=== PATIENT | female | born 1940 | race Caucasian/White ===

== ENCOUNTER → 2017-02-06 09:15 | Outpatient (CLI) | payer MEDICARE, OTHER, SELFPAY ==
--- NOTE | 2017-02-06 09:24 | XR_ITS ---
XR chest 2V CLINICAL INDICATION: ITS.REASON: RECURRENT COUGH, FEVER ORDERING PHYSICIAN: Bello Lion PATIENT AGE: 76 years COMPARISON: 10/26/2010 FINDINGS: Unremarkable cardiovascular structures. The lungs are clear of acute infiltrate. Nodularity is present in the left perihilar region and may be related to overlapping vasculature having a similar appearance on the previous exam. There is some nodularity noted in the infrahilar region on the lateral view. There are no previous lateral exams available for comparison. While this may be related to overlying vasculature, one cannot exclude possibility of a pulmonary nodule. Follow-up is suggested. Minimal atelectatic changes are present in the lung bases. There is mild wedging of T9 and to a lesser degree at T11 of unknown age. IMPRESSION: 1. Nodular opacity noted in the infrahilar region. Cannot exclude pulmonary nodule. Consider chest CT follow-up with contrast. 2. Minimal wedging of T9 and T11 age-indeterminate. 3. No acute infiltrate
== END ==
PROVIDERS: PCP Internal Medicine; Visit Provider Internal Medicine
DX: R05 Cough (principal); R50.9 Fever, unspecified
CPT/HCPCS: 71046

== ENCOUNTER → 2017-02-13 14:06 | Outpatient (CLI) | payer MEDICARE, OTHER, SELFPAY ==
[2017-02-13 15:25] LABS: Blood Urea Nitrogen 19 mg/dL (7-18); Creatinine,Serum 0.93 mg/dL (0.55-1.02); Estimated Glomerular Filt Rate 59 ml/min (>60); GFR (African American) 71 ML/MIN (>60)
== END ==
PROVIDERS: PCP Internal Medicine; Visit Provider Internal Medicine
DX: R91.1 Solitary pulmonary nodule (principal)
CPT/HCPCS: 36415; 82565; 84520

== ENCOUNTER → 2017-02-15 13:32 | Outpatient (CLI) | payer MEDICARE, OTHER, SELFPAY ==
--- NOTE | 2017-02-15 13:36 | CT_ITS ---
CT chest w con HISTORY: Solitary pulmonary nodule, follow-up abnormal chest x-ray, recurrent cough and fever ITS.REASON: LUNG NODULE ORDERING PHYSICIAN: Bello Lion PATIENT AGE: 76 years TECHNIQUE: Helical acquisition obtained following the administration of 75 mL of Isovue 370 followed. Axial, sagittal, and coronal reformatted images are generated and reviewed. COMPARISON: Radiograph of 02/06/2017 FINDINGS: No mediastinal or hilar mass. Normal heart size. No pericardial thickening. No mediastinal or hilar adenopathy. Small hiatal hernia. No pulmonary mass, infiltrate, or effusion. Radiographic abnormality corresponds to overlapping pulmonary vessels and a somewhat unusual contour of the branching of the pulmonary artery in the right middle lobe. Upper abdominal images show a 15 mm adrenal nodule in the left. This has a homogeneous appearance but is somewhat hyperdense. 6 month follow-up recommended to confirm stability. There is mild wedging involving T9 which appears chronic. No acute bony anomalies are evident. IMPRESSION: 1. No pulmonary nodule or hilar mass evident. Radiographic abnormality corresponds to overlapping vessels 2. 15 mm left adrenal nodule nonspecific. Consider 6 month follow-up without and with contrast.
--- NOTE | 2017-02-15 13:58 | HMH.ITSHM ---
NAPROXEN 500MG PREDNISONE 4MG FIBER THERAPY CALCIUM AND VIT D LOSARTEN ASPIRIN 88MG
== END ==
PROVIDERS: Family Provider Internal Medicine; PCP Internal Medicine; Visit Provider Internal Medicine
DX: R91.1 Solitary pulmonary nodule (principal)
CPT/HCPCS: 71260; Q9967

== ENCOUNTER → 2017-02-27 16:12 | Outpatient (CLI) | payer MEDICARE, OTHER, SELFPAY ==
--- NOTE | 2017-02-27 16:18 | MM_ITS ---
MM Dig screening mamm BI w/CAD Diagnostic bilateral mammogram with CAD ORDERING PHYSICIAN : Bello Lion PATIENT AGE: 76 years GENDER: Female COMPARISON: Previous mammograms: January 2013, 2013 2014 and February 2016 INDICATION: TECHNIQUE: Standard CC and MLO images were obtained. R2 CAD reviewed. FINDINGS no significant changes prior study. Moderate breast density. Stable areas of density bilaterally. Benign calcification bilateral. Right breast : The up to 11 mm low-density ovoid area at the superior right breast 12 o'clock position . is stable since prior studies dating back to at least 2012 Previous percutaneous biopsy with metallic marker upper-outer quadrant deep right breast. Left breast.: The 7.8 mm stable density at the central left breast is unchanged study since 2012 as well. It is stable benign features with no significant new findings. IMPRESSION: 1. Stable bilateral mammogram with no significant new findings. Stable minimal nodularity bilaterally.Low-density breast. Follow-up in one year BI-RADS Category: 2 Benign Finding(s) RECOMMENDED FOLLOW-UP: 1YR - 1 YEAR FOLLOW-UP (A letter has been sent to the patient regarding results of the study.)
== END ==
PROVIDERS: Family Provider Internal Medicine; PCP Internal Medicine; Visit Provider Internal Medicine
DX: Z12.31 Encounter for screening mammogram for malignant neoplasm of breast (principal)
CPT/HCPCS: 77067

== ENCOUNTER → 2017-12-25 09:30 | Outpatient (CLI) | payer MEDICARE, OTHER, SELFPAY ==
--- NOTE | 2017-12-25 10:02 | CT_ITS ---
CT abdomen wo/w con CLINICAL INDICATION: Follow-up adrenal nodule ITS.REASON: 6 MONTH F/U LEFT AREA ORDERING PHYSICIAN: Bello Lion PATIENT AGE: 77 years COMPARISON: None TECHNIQUE: Axial images obtained without and with contrast. Sagittal and coronal reformats. All CT scans at the facility use one or more dose reduction, viz: automated exposure control, ma/kV adjustment per patient size (including targeted exams where dose is matched to indication, i.e. head), or iterative reconstruction technique. PROCEDURE: Oral Contrast: None IV Contrast: 75 mL Isovue-370. FINDINGS: The lung bases are clear. Prior cholecystectomy.. The spleen, right adrenal gland, pancreas, and kidneys have an unremarkable appearance aside from a small isodensity in the lower pole of the right kidney at 5 mm which may be due to small renal cyst. Left adrenal enlargement is once again noted measuring 15 mm. Unenhanced density is -10 Hounsfield units with 15 minute postenhancement density at -1 Hounsfield units. This is consistent with an adenoma. Immediate post enhanced density is 32 Hounsfield units. No other abnormalities apparent. IMPRESSION: Stable left adrenal nodule consistent with an adenoma
== END ==
PROVIDERS: PCP Internal Medicine; Visit Provider Internal Medicine
DX: D35.00 Benign neoplasm of unspecified adrenal gland (principal)
CPT/HCPCS: 74170; Q9967

== ENCOUNTER 2018-04-13 06:50 | Inpatient (IN) ==
[2018-04-13 07:29] LABS: Basophils # 0.1 K/mm3 (0-0.2); Basophils % 0.3 % (0.1-2.0); Eosinophils # 0.2 K/mm3 (0.0-0.4); Eosinophils % 1.4 % (0.1-12.0); Hematocrit 40.6 % (37.0-47.0); Hemoglobin 13.4 g/dL (12.2-16.2); Lymphocytes # 1.7 K/mm3 (0.7-4.5); Lymphocytes % 12.9 % (10-50); Mean Corpuscular HGB Conc 32.9 g/dL (31.8-35.4); Mean Corpuscular Hemoglobin 29.2 pg (27.0-31.2); Mean Corpuscular Volume 88.6 fl (81-99); Mean Platelet Volume 7.9 fl (7.4-10.4); Monocytes # 0.4 K/mm3 (0.1-1.0); Monocytes % 2.8 % (1.7-9.3); Neutrophils # 11.1 K/mm3 (1.8-7.8); Neutrophils % 82.6 % (37.0-80.0); Platelet Count 221 K/mm3 (142-424); Red Blood Count 4.58 M/mm3 (4.20-5.40); Red Cell Distribution Width 13.1 % (11.5-17.5); White Blood Count 13.4 K/mm3 (4.8-10.8)
[2018-04-13 07:34] LABS: Albumin Level 3.5 gm/dL (3.4-5.0); Anion Gap 13.9 mEq/L (5-15); Calcium 8.9 mg/dL (8.5-10.1); Globulin 3.6 gm/dl (1.3-3.2); Potassium 3.9 mmoL/L (3.5-5.1); Total Protein,Serum 7.1 gm/dL (6.4-8.2)
--- NOTE | 2018-04-13 07:44 | Emergency Department Note ---
ED Disposition Condition on Discharge: Good - Critical Care Critical Care Time: No <Charly Wick - Last Filed: 04/13/18 08:05> Condition on Discharge: Fair - Critical Care Critical Care Time: No <RadhaRabia burden - Last Filed: 04/13/18 08:44> Clinical Impression: Acute diverticulitis, Diverticular disease Abdominal pain Qualifiers: Abdominal location: left lower quadrant Qualified Code(s): R10.32 - Left lower quadrant pain Disposition: Still a Patient Referrals: Bello Lion [Primary Care Provider] - Attestation: On 04/13/18, the high probability of a clinically significant, sudden or life threatening deterioration of the following system(s) required my full and direct attention, intervention and personal management. The time I documented below is in addition to time spent performing reported procedures but includes the fo llowing listed in this critical care notation. Medical Decision Making - Alex Inquiry Pt receiving controlled substance: No - Lab Data Result diagrams: 04/13/18 07:10 04/13/18 07:10 <KennedyvickyCharly - Last Filed: 04/13/18 08:05> - Alex Inquiry Pt receiving controlled substance: No Alex was queried for this patient: No - Lab Data Result diagrams: 04/13/18 07:10 04/13/18 07:10 <RadhajeniseRabia - Last Filed: 04/13/18 08:44> Vital Signs: 04/13/18 06:56 04/13/18 07:41 04/13/18 08:29 Temperature 97.9 F Temperature Source Oral Pulse Rate [Left] 74 71 87 Respiratory Rate 18 16 20 Blood Pressure [Left Arm] 126/67 118/64 137/58 L Blood Pressure Mean [Left Arm] 86 82 84 Blood Pressure Source [Left Arm] Automatic Cuff Automatic Cuff Automatic Cuff Blood Pressure Position [Left Arm] Sitting Sitting Sitting 02 Sat by Pulse Oximetry 97 94 L 94 L Oxygen Delivery Method Room Air Room Air Room Air - Lab Data Lab Results 04/13/18 07:10: WBC 13.4 H, RBC 4.58, Hgb 13.4, Hct 40.6, MCV 88.6, MCH 29.2, MCHC 32.9, RDW 13.1, Plt Count 221, MPV 7.9, Neut % (Auto) 82.6 H, Lymph % (Auto) 12.9, [place] % (Auto) 2.8, Eos % (Auto) 1.4, Baso % (Auto) 0.3, Neut # (Auto) 11.1 H, Lymph # (Auto) 1.7, [place] # (Auto) 0.4, Eos # (Auto) 0.2, Baso # (Auto) 0.1 04/13/18 07:10: Sodium 142, Potassium 3.9, Chloride 105, Carbon Dioxide 27, Anion Gap 13.9, BUN 21 H, Creatinine 0.84, Estimated Creat Clear 56, Estimated GFR 66, Est GFR ( Amer) 80, Glucose 139 H, Calcium 8.9, Total Bilirubin 1.0, AST 13 L, ALT 23, Alkaline Phosphatase 75, Total Protein 7.1, Albumin 3.5, Globulin 3.6 H, Albumin/Globulin Ratio 1.0 L, Amylase 39, Lipase 157 Orders (Tests/Meds): ED MEDICATIONS Generic Name Dose Route Start Last Admin Trade Name Fernandoq PRN Reason Stop Dose Admin Metronidazole 500 mg in 100 mls @ 100 mls/hr 04/13/18 08:45 04/13/18 08:36 Flagyl 500mg/100ml Ivpb IV 04/27/18 08:44 100 mls/hr Q6H ADELE Administration Protocol Levofloxacin/Dextrose 750 mg in 150 mls @ 100 mls/hr 04/13/18 08:45 Levofloxacin 750mg/150ml Premix IV 04/27/18 08:44 Q24H ADELE Protocol Discontinued Medications Generic Name Dose Route Start Last Admin Trade Name Freq PRN Reason Stop Dose Admin Sodium Chloride 1,000 mls @ 999 mls/hr 04/13/18 07:15 04/13/18 07:24 Sod Chlor 0.9% 1000ml Bag IV 04/13/18 08:15 999 mls/hr .Q1H1M ADELE Administration Ketorolac Tromethamine 30 mg 04/13/18 07:08 04/13/18 07:24 Toradol 30mg/Ml Vial IV 04/13/18 07:09 30 mg ONCE ONE Administration Ondansetron HCl 4 mg 04/13/18 07:08 04/13/18 07:24 Zofran 4mg/2ml Vial IV 04/13/18 07:09 4 mg ONCE ONE Administration ORDERS Category Date Time Status CT abdomen pelvis wo con Stat Cat Scan 04/13/18 07:06 Taken Urinalysis and Microscopic Stat Lab 04/13/18 07:06 Ordered Medical Decision Narrative: 8:00 AM: At shift change, I have discussed the patient with Dr. Bain, who will assume care of the patient at this time. I have discussed all clinical information including history, physical and diagnostic study results. Preliminary diagnoses based on information available at this point have been recorded by me. Controlled substance administration and critical care statement are also preliminary, as of the time of handoff. (Charly Wick) [address] Bain: S: 74 years old white female with history of hypertension and status post cholecystectomy many years ago and [facility]. 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 She is not aware of history of diverticulosis. Today at 4 AM she developed sudden onset sharp left lower quadrant pain worse with movement and ambulation. She became nauseous with no vomiting no diarrhea no hematemesis no coffee-ground emesis no melanotic stool or bleeding per rectum. She presented to the ED with the pain rated 10/10 and she was given Toradol that reduce her pain to 2/10. I reviewed the above documentation and received the CT scan that was positive for inflammatory changes and microperforation. I contacted the on-call [facility] surgeon Dr. Emerson, who advised for bowel rest, IV antibiotics and he will see her within an hour. The patient was satisfied with the management plan. I contacted Dr. Lloyd who admitted her on behalf of Dr. Agudelo. O: Vital signs are stable. Chest is clear to auscultation heart is regular rate and rhythm. Abdomen is soft with left lower quadrant tenderness and voluntary guarding positive bowel sounds. Strong equal bilateral femoral pulse. A/P: 1-acute diverticulitis with microperforations. 2-history of hypertension. 3-S/P cholecystectomy. I discussed the above with the patient and her son, they are aware she is being admitted for medical management and possibly surgical intervention if no improvement,they verbalized understanding of the management plan. (Rabia Bain) General Adult HPI - General Mode of Arrival: Ambulatory Limitations: No Limitations Description of Symptoms (Recalled from ER Triage Doc. by RN): Pt states she woke up with a LLQ abd pain. <Charly Wick - Last Filed: 04/13/18 08:05> <Rabia Bain - Last Filed: 04/13/18 08:44> - General Chief complaint: Abdominal Pain Stated complaint: Left side pain Time Seen by Provider: 04/13/18 07:44 - History of Present Illness HPI narrative: Awakened at 4 AM by left lower quadrant pain. Vomiting, but no diarrhea or constipation or urinary symptoms. No fever. No prior similar pains. Prior history of cholecystectomy, no other abdominal surgeries. Pain is now 2/10. Was 5/10 on arrival. (Charly Wick) - Related Data Allergies Allergy/AdvReac Type Severity Reaction Status Date / Time codeine [CODEINE] AdvReac Mild NA-NAUSEA Verified 04/13/18 08:36 BANDAIDS Allergy Unknown Uncoded 01/23/17 14:26 [facility] History - Hepatitis A Screen Drug use history?: No High risk sexual behaviors?: No History of sexually transmitted infection?: No Currently employed?: No Childcare worker?: No Do you have indoor plumbing?: Yes Do you have electricity?: Yes I have reviewed the patient's past medical history: Yes - Social History Alcohol Intake: never Occupational Status: retired - Psychiatric History Expresses thoughts of harming self/others: None Suicide Plan Description: No Plan <Charly Wick - Last Filed: 04/13/18 08:05> - Hepatitis A Screen Attestation statement:: This patient has been screened for Hepatitis A risk factors. ROS Obtained: Yes All systems reviewed & no additional complaints - Constitutional Constitutional: Denies fever(s) - Gastrointestinal Gastrointestingal: Reports: abdominal pain, vomiting. Denies: constipation, diarrhea - Genitourinary Female Genitourinary: Denies difficulty voiding, Denies dysuria, Denies flank pain <Charly Wick - Last Filed: 04/13/18 08:05> Physical Exam - General General appearance: alert - Head Head exam: atraumatic, normocephalic - Eye Eye exam: Present: normal appearance, PERRL, EOMI - ENT ENT exam: Present: mucous membranes moist - Neck Neck exam: Present: normal inspection, trachea midline - Chest Chest inspection: Present: normal inspection, symmetric chest wall rise - Respiratory Respiratory exam: Present: normal lung sounds bilaterally. Absent: respiratory distress - Cardiovascular Cardiovascular exam: Present: regular rate, normal rhythm, normal heart sounds - Abdominal Exam Abdominal exam: Present: soft, tenderness, guarding. Absent: distention, rebound, rigidity Abdominal tenderness: Present: LLQ - Extremities Exam Extremities exam: Present: normal inspection - Neurological Exam Neurological exam: Present: alert, oriented X3 - Psychiatric Psychiatric exam: Present: normal affect, normal mood - Skin Skin exam: Present: warm, dry <Charly Wick - Last Filed: 04/13/18 08:05>
--- NOTE | 2018-04-13 09:57 | History & Physical Report ---
HPI HPI: Ms. Cooper is a 77-year-old female that presents to [facility] with acute onset left lower quadrant abdominal pain. Described as sharp. No radiation. Pain located in the left lower quadrant. Awoke patient at 4 AM this morning. Brought to [facility] by private vehicle for further evaluation. No nausea or vomiting. No hematochezia or melena. No prior episodes. No alleviating or aggravating factors, however, patient has received pain medication and reports some improvement in left lower quadrant abdominal pain. No fevers or chills. Past medical history significant for prednisone use secondary to polymyalgia rheumatica. Prior colonoscopy [place] [address] Atul [place]. Reportedly "normal" per patient. No other complaints. CT imaging obtained during [facility] Emergency Department evaluation; findings consistent with complicated diverticulitis. Scattered low volume pneumoperitoneum. No free fluid. [facility] History Medical History: Reports:: Hypertension *Have you ever received a pneumonia vaccine?: Yes *Have you received a flu vaccine this season?: Yes Laterality Cases: Right: Arthroscopy Shoulder Other Surgeries: Yes: Cholecystectomy - *Social History Smoking Status: Never smoker Alcohol Intake: never *Occupational Status:: retired *Travel in the last 8 weeks: None - Psychiatric History Expresses thoughts of harming self/others: None Suicide Plan Description: No Plan Family Hx:: No significant family history Review of Systems - Review of Systems Review of systems:: pertinent systems reviewed and negative unless documented below Meds Home Medications Medication Instructions Recorded Confirmed Type Aspirin [Aspir 81] 81 mg PO DAILY 04/13/18 04/13/18 History Cholecalciferol (Vitamin D3) 1,000 unit PO DAILY 04/13/18 04/13/18 History [Vitamin D3 1,000 Unit Cap] Losartan/Hydrochlorothiazide 1 each PO DAILY 04/13/18 04/13/18 History [Losartan-Hctz 100-12.5 mg Tab] Methylcellulose [Fiber Therapy] 500 mg PO DAILY 04/13/18 04/13/18 History Naproxen 500 mg PO DAILY 04/13/18 04/13/18 History predniSONE [Deltasone 1mg tablet] 1 mg PO DAILY 04/13/18 04/13/18 History Allergies Allergy/AdvReac Type Severity Reaction Status Date / Time codeine [CODEINE] AdvReac Mild NA-NAUSEA Verified 04/13/18 08:36 BANDAIDS Allergy Unknown Uncoded 01/23/17 14:26 Exam Vital signs and Labs for Last 24 Hours: Temp Pulse Resp BP Pulse Ox 97.9 F 77 16 105/36 L 94 L 04/13/18 06:56 04/13/18 09:30 04/13/18 09:30 04/13/18 09:30 04/13/18 09:30 Laboratory Results - last 24 hr 04/13/18 07:10: WBC 13.4 H, RBC 4.58, Hgb 13.4, Hct 40.6, MCV 88.6, MCH 29.2, MCHC 32.9, RDW 13.1, Plt Count 221, MPV 7.9, Neut % (Auto) 82.6 H, Lymph % (Auto) 12.9, [place] % (Auto) 2.8, Eos % (Auto) 1.4, Baso % (Auto) 0.3, Neut # (Auto) 11.1 H, Lymph # (Auto) 1.7, [place] # (Auto) 0.4, Eos # (Auto) 0.2, Baso # (Auto) 0.1 04/13/18 07:10: Sodium 142, Potassium 3.9, Chloride 105, Carbon Dioxide 27, Anion Gap 13.9, BUN 21 H, Creatinine 0.84, Estimated Creat Clear 56, Estimated GFR 66, Est GFR ( Amer) 80, Glucose 139 H, Calcium 8.9, Total Bilirubin 1.0, AST 13 L, ALT 23, Alkaline Phosphatase 75, Total Protein 7.1, Albumin 3.5, Globulin 3.6 H, Albumin/Globulin Ratio 1.0 L, Amylase 39, Lipase 157 I & O for Last 24 hours: Intake & Output 04/10/18 04/11/18 04/12/18 04/13/18 11:59 11:59 11:59 11:59 Weight 74.389 kg - Constitutional no acute distress, average body habitus, cooperative - *Routine HEENT Exam Head: Present: normocephalic Eye: Present: EOMI ENT: Present: mucous membranes moist - *Routine Neck Exam Present: supple - *Routine Respiratory Exam Present: CTA bilaterally - *Routine Cardiovascular Exam Present: RRR - *Routine Abdominal Exam Present: soft Comments: Nondistended. Minimally tender left lower quadrant. No peritonitis. No guarding. - *Routine Extremities Exam Present: full ROM Results - Results Lab Results Last 24 Hours:: Laboratory Results - last 24 hr 04/13/18 07:10: WBC 13.4 H, RBC 4.58, Hgb 13.4, Hct 40.6, MCV 88.6, MCH 29.2, MCHC 32.9, RDW 13.1, Plt Count 221, MPV 7.9, Neut % (Auto) 82.6 H, Lymph % (Auto) 12.9, [place] % (Auto) 2.8, Eos % (Auto) 1.4, Baso % (Auto) 0.3, Neut # (Auto) 11.1 H, Lymph # (Auto) 1.7, [place] # (Auto) 0.4, Eos # (Auto) 0.2, Baso # (Auto) 0.1 04/13/18 07:10: Sodium 142, Potassium 3.9, Chloride 105, Carbon Dioxide 27, Anion Gap 13.9, BUN 21 H, Creatinine 0.84, Estimated Creat Clear 56, Estimated GFR 66, Est GFR ( Amer) 80, Glucose 139 H, Calcium 8.9, Total Bilirubin 1.0, AST 13 L, ALT 23, Alkaline Phosphatase 75, Total Protein 7.1, Albumin 3.5, Globulin 3.6 H, Albumin/Globulin Ratio 1.0 L, Amylase 39, Lipase 157 CT scan - abdomen: report reviewed, image reviewed CT scan - pelvis: report reviewed, image reviewed (Evidence of scattered pneumoperitoneum. No free fluid. Findings consistent with acute sigmoid diverticulitis.) Assessment and Plan (1) Acute diverticulitis Current visit: Yes Status: Acute Category: Medical Code(s): K57.92 - Diverticulitis of intestine, part unspecified, without perforation or abscess without bleeding Presentation with acute onset left lower quadrant abdominal pain. CT imaging consistent with complicated acute sigmoid diverticulitis. Scattered pneumoperitoneum noted predominantly in the left midabdomen. No free fluid. Medical abdominal examination without significant abnormality although mild left lower quadrant tenderness is noted. No peritonitis. Prior colonoscopy in 2017 without significant abnormality. Overall, no immediate surgical intervention warranted. Admit. IV antibiotics times 24 hours. Limit oral intake. Transition to oral antibiotics within 24 hours. Plan at this time would be discharge planning in 24-36 hours with approximately 10-day course of oral antibiotics. Interval colonoscopy can be considered in 4-6 weeks, however, recent colonoscopy in 2017 should be sufficient. Patient will likely avoid any operative intervention based on current presentation and CT appearance.
[2018-04-14 06:14] LABS: Basophils % 0.2 % (0.1-2.0); Eosinophils % 0.1 % (0.1-12.0); Hematocrit 35.2 % (37.0-47.0); Lymphocytes % 6.8 % (10-50); Mean Corpuscular HGB Conc 32.3 g/dL (31.8-35.4); Mean Corpuscular Volume 89.8 fl (81-99); Mean Platelet Volume 8.2 fl (7.4-10.4); Monocytes # 0.5 K/mm3 (0.1-1.0); Monocytes % 3.5 % (1.7-9.3); Neutrophils # 13.4 K/mm3 (1.8-7.8); Neutrophils % 89.4 % (37.0-80.0); Platelet Count 167 K/mm3 (142-424); Red Blood Count 3.92 M/mm3 (4.20-5.40); Red Cell Distribution Width 13.5 % (11.5-17.5)
[2018-04-14 06:34] LABS: Anion Gap 16.6 mEq/L (5-15); Calcium 7.9 mg/dL (8.5-10.1); Potassium 3.6 mmoL/L (3.5-5.1)
[2018-04-14 07:24] LABS: Lymphocytes % 7 % (10-50); Neutrophils % 78 % (42-76); RBC Morphology Normal; Total Cells Counted 100
[2018-04-14 07:33] LABS: Hemoglobin 11.3 g/dL (12.2-16.2)
--- NOTE | 2018-04-14 08:40 | Progress Note ---
Internal Medicine - PN: Subj *Date: 04/14/18 *Time: 08:39 Interval history: Patient is awake, feels comfortable when she does not move around, notes that her abdominal pain is still significant but is improved over yesterday. She has had no vomiting or diarrhea. She has had no fever. Exam Vital signs and Labs for Last 24 Hours: Temp Pulse Resp BP Pulse Ox 98.9 F 82 20 95/47 L 89 L 04/14/18 04:00 04/14/18 04:00 04/14/18 04:00 04/14/18 04:00 04/14/18 04:00 Laboratory Results - last 24 hr 04/14/18 05:30: WBC 15.0 H, RBC 3.92 L, Hgb 11.3 L D, Hct 35.2 L, MCV 89.8, MCH 29.0, MCHC 32.3, RDW 13.5, Plt Count 167, MPV 8.2, Neut % (Auto) 89.4 H, Lymph % (Auto) 6.8 L, [place] % (Auto) 3.5, Eos % (Auto) 0.1, Baso % (Auto) 0.2, Neut # (Auto) 13.4 H, Lymph # (Auto) 1.0, [place] # (Auto) 0.5, Eos # (Auto) 0.0, Baso # (Auto) 0.0, Total Counted 100, Neutrophils % (Manual) 78 H, Band Neutrophils % 15.0 H, Lymphocytes % (Manual) 7 L, Platelet Estimate Normal, RBC Morphology Normal 04/14/18 05:30: Sodium 145, Potassium 3.6, Chloride 110 H, Carbon Dioxide 22, Anion Gap 16.6 H, BUN 29 H D, Creatinine 1.13 H D, Estimated Creat Clear 51, Estimated GFR 47 L, Est GFR ( Amer) 57 L D, Glucose 132 H, Calcium 7.9 L D I & O for Last 24 hours: Intake & Output 04/11/18 04/12/18 04/13/18 04/14/18 11:59 11:59 11:59 12:59 Intake Total 200 / 200 Balance 200 / 200 Weight 168 lb Narrative: Patient is pleasant, talkative, lungs are clear, heart rate regular. Abdomen is tender, positive bowel sounds noted but exquisitely tender to palpation with some guarding. No clubbing or edema noted. Assessment and Plan (1) Acute diverticulitis Current visit: Yes Status: Acute Category: Medical Code(s): K57.92 - Diverticulitis of intestine, part unspecified, without perforation or abscess without bleeding - Assessment and plan all Dx Assessment and Plan for all problems:: Appreciate surgical input yesterday. We will continue to follow this plan. Patient is symptomatically improving. Check blood counts again tomorrow.
--- NOTE | 2018-04-14 10:55 | Progress Note ---
Subjective Narrative: Ms. Cooper is a 77-year-old female admitted for complicated diverticulitis. Scattered pneumoperitoneum without free fluid. No peritonitis at the time of admission. Nonoperative management discussed. Today, Ms. Cooper indicates she is still having pain. No nausea or vomiting. Tolerating ice chips. Exam Vital signs and Labs for Last 24 Hours: Temp Pulse Resp BP Pulse Ox 98.9 F 82 20 95/47 L 90 L 04/14/18 04:00 04/14/18 04:00 04/14/18 04:00 04/14/18 04:00 04/14/18 08:00 Laboratory Results - last 24 hr 04/14/18 05:30: WBC 15.0 H, RBC 3.92 L, Hgb 11.3 L D, Hct 35.2 L, MCV 89.8, MCH 29.0, MCHC 32.3, RDW 13.5, Plt Count 167, MPV 8.2, Neut % (Auto) 89.4 H, Lymph % (Auto) 6.8 L, [place] % (Auto) 3.5, Eos % (Auto) 0.1, Baso % (Auto) 0.2, Neut # (Auto) 13.4 H, Lymph # (Auto) 1.0, [place] # (Auto) 0.5, Eos # (Auto) 0.0, Baso # (Auto) 0.0, Total Counted 100, Neutrophils % (Manual) 78 H, Band Neutrophils % 15.0 H, Lymphocytes % (Manual) 7 L, Platelet Estimate Normal, RBC Morphology Normal 04/14/18 05:30: Sodium 145, Potassium 3.6, Chloride 110 H, Carbon Dioxide 22, Anion Gap 16.6 H, BUN 29 H D, Creatinine 1.13 H D, Estimated Creat Clear 51, Estimated GFR 47 L, Est GFR ( Amer) 57 L D, Glucose 132 H, Calcium 7.9 L D I & O for Last 24 hours: Intake & Output 04/11/18 04/12/18 04/13/18 04/14/18 11:59 11:59 11:59 12:59 Intake Total 300 / 300 Balance 300 / 300 Weight 76.204 kg - *Routine Respiratory Exam Present: CTA bilaterally - *Routine Cardiovascular Exam Present: RRR - *Routine Abdominal Exam Comments: Slightly more tender. Mildly distended. No peritonitis. Voluntary guarding. Progress Note: A&P (1) Acute diverticulitis Status: Acute Current Visit: Yes Assessment and Plan for All Diagnoses:: Complicated diverticulitis. Clinical examination slightly worse today although there is progression to peritonitis. No acute abdomen. Continue current plan for nonoperative management. Anticipated discharge today is not possible. Ms. Cooper is not medically ready. Slight increase in WBC is noted; 15,000+. Continue IV antibiotics. Allow few sips of clears. Continue inpatient admission.
--- NOTE | 2018-04-14 14:26 | Pharmacy Consult Notes ---
[facility] Pharmacy VTE Monitoring - Patient Demographics Admission date: 04/14/18 Report Date: 04/14/18 Time: 14:25 Allergies/Adverse Reactions: Patient Allergies codeine [CODEINE] Adverse Reaction (Mild, Verified 04/13/18 08:36) NA-NAUSEA BANDAIDS Allergy (Unknown, Uncoded 01/23/17 14:26) Height: 1.6 m Weight: 76.204 kg Patient Problems: Current Active Problems Abdominal pain (Acute) Acute diverticulitis (Acute) Diverticular disease (Acute) - VTE Risk Labs: VTE Related Lab Results Hgb 11.3 g/dL (12.2-16.2) L D 04/14/18 05:30 Hct 35.2 % (37.0-47.0) L 04/14/18 05:30 Plt Count 167 K/mm3 (142-424) 04/14/18 05:30 BUN 29 mg/dL (7-18) H D 04/14/18 05:30 Creatinine 1.13 mg/dL (0.55-1.02) H D 04/14/18 05:30 Estimated Creat Clear 51 mL/min (50-200) 04/14/18 05:30 Was VTE Risk Assessment Performed: Yes VTE Risk Level: Very Low Risk - Prophylaxis Types of VTE Prophylaxis: TEDS Knee High (ALAN HOSE ORDER PLACED.)
[2018-04-15 05:42] LABS: Basophils % 0.1 % (0.1-2.0); Eosinophils # 0.1 K/mm3 (0.0-0.4); Eosinophils % 0.4 % (0.1-12.0); Hematocrit 34.3 % (37.0-47.0); Hemoglobin 10.9 g/dL (12.2-16.2); Lymphocytes # 0.9 K/mm3 (0.7-4.5); Lymphocytes % 5.8 % (10-50); Mean Corpuscular HGB Conc 31.7 g/dL (31.8-35.4); Mean Corpuscular Hemoglobin 29.3 pg (27.0-31.2); Mean Corpuscular Volume 92.3 fl (81-99); Mean Platelet Volume 8.4 fl (7.4-10.4); Monocytes # 0.3 K/mm3 (0.1-1.0); Monocytes % 2.1 % (1.7-9.3); Neutrophils # 14.1 K/mm3 (1.8-7.8); Neutrophils % 91.7 % (37.0-80.0); Platelet Count 148 K/mm3 (142-424); Red Blood Count 3.72 M/mm3 (4.20-5.40); Red Cell Distribution Width 13.5 % (11.5-17.5); White Blood Count 15.4 K/mm3 (4.8-10.8)
[2018-04-15 06:00] LABS: Hypochromasia 1+; Lymphocytes % 8 % (10-50); Macrocytosis 1+; Neutrophils % 81 % (42-76); Total Cells Counted 100
[2018-04-15 06:05] LABS: Albumin Level 2.1 gm/dL (3.4-5.0); Albumin/Globulin Ratio 0.8 (1.1-1.8); Calcium 7.5 mg/dL (8.5-10.1); Globulin 2.8 gm/dl (1.3-3.2); Total Protein,Serum 4.9 gm/dL (6.4-8.2)
--- NOTE | 2018-04-15 08:27 | Progress Note ---
Subjective Narrative: Patient is a 77-year-old white female admitted this weekend with findings of acute diverticulitis. She was admitted and started on nonoperative management with intravenous levofloxacin and metronidazole. Patient states that she feels better today. Exam Vital signs and Labs for Last 24 Hours: Temp Pulse Resp BP Pulse Ox 98.2 F 77 18 102/55 L 90 L 04/15/18 04:00 04/15/18 04:00 04/15/18 04:00 04/15/18 04:00 04/15/18 04:00 Laboratory Results - last 24 hr 04/15/18 05:35: WBC 15.4 H, RBC 3.72 L, Hgb 10.9 L, Hct 34.3 L, MCV 92.3, MCH 29.3, MCHC 31.7 L, RDW 13.5, Plt Count 148, MPV 8.4, Neut % (Auto) 91.7 H, Lymph % (Auto) 5.8 L, [place] % (Auto) 2.1, Eos % (Auto) 0.4, Baso % (Auto) 0.1, Neut # (Auto) 14.1 H, Lymph # (Auto) 0.9, [place] # (Auto) 0.3, Eos # (Auto) 0.1, Baso # (Auto) 0.0, Total Counted 100, Neutrophils % (Manual) 81 H, Band Neutrophils % 11.0 H, Lymphocytes % (Manual) 8 L, Platelet Estimate Normal, Hypochromasia 1+, Macrocytosis 1+ 04/15/18 05:35: Sodium 146 H, Potassium 4.0, Chloride 113 H, Carbon Dioxide 22, Anion Gap 15.0, BUN 32 H, Creatinine 1.01, Estimated Creat Clear 57, Estimated GFR 53 L, Est GFR ( Amer) 64, Glucose 135 H, Calcium 7.5 L, Total Bilirubin 1.0, AST 15, ALT 17 D, Alkaline Phosphatase 61, Total Protein 4.9 L D , Albumin 2.1 L, Globulin 2.8, Albumin/Globulin Ratio 0.8 L I & O for Last 24 hours: Intake & Output 04/12/18 04/13/18 04/14/18 04/15/18 10:59 10:59 11:59 11:59 Intake Total 100 / 100 Balance 100 / 100 Weight 168 lb - Constitutional no acute distress - *Routine Abdominal Exam Present: soft Comments: She has diffuse tenderness. She does have some guarding in the left lower abdomen. Progress Note: A&P (1) Acute diverticulitis Status: Acute Current Visit: Yes Assessment and Plan for All Diagnoses:: Patient's abdominal examination is concerning. She also has had a persistent leukocytosis. I will at this point change her to intravenous Invanz for antibiotic coverage. Will repeat CT scan with IV and oral contrast for better radiographic evaluation and interval change. Could require operative intervention.
--- NOTE | 2018-04-15 08:36 | Progress Note ---
Internal Medicine - PN: Subj *Date: 04/15/18 *Time: 08:33 Interval history: Patient feels somewhat better. She is vomited twice through the last 24 hours, she thinks this was precipitated by moving around and having intense belly pain. She has passed flatus but no stools. Exam Vital signs and Labs for Last 24 Hours: Temp Pulse Resp BP Pulse Ox 98.2 F 77 18 102/55 L 90 L 04/15/18 04:00 04/15/18 04:00 04/15/18 04:00 04/15/18 04:00 04/15/18 04:00 Laboratory Results - last 24 hr 04/15/18 05:35: WBC 15.4 H, RBC 3.72 L, Hgb 10.9 L, Hct 34.3 L, MCV 92.3, MCH 29.3, MCHC 31.7 L, RDW 13.5, Plt Count 148, MPV 8.4, Neut % (Auto) 91.7 H, Lymph % (Auto) 5.8 L, [place] % (Auto) 2.1, Eos % (Auto) 0.4, Baso % (Auto) 0.1, Neut # (Auto) 14.1 H, Lymph # (Auto) 0.9, [place] # (Auto) 0.3, Eos # (Auto) 0.1, Baso # (Auto) 0.0, Total Counted 100, Neutrophils % (Manual) 81 H, Band Neutrophils % 11.0 H, Lymphocytes % (Manual) 8 L, Platelet Estimate Normal, Hypochromasia 1+, Macrocytosis 1+ 04/15/18 05:35: Sodium 146 H, Potassium 4.0, Chloride 113 H, Carbon Dioxide 22, Anion Gap 15.0, BUN 32 H, Creatinine 1.01, Estimated Creat Clear 57, Estimated GFR 53 L, Est GFR ( Amer) 64, Glucose 135 H, Calcium 7.5 L, Total Bilirubin 1.0, AST 15, ALT 17 D, Alkaline Phosphatase 61, Total Protein 4.9 L D , Albumin 2.1 L, Globulin 2.8, Albumin/Globulin Ratio 0.8 L I & O for Last 24 hours: Intake & Output 04/12/18 04/13/18 04/14/18 04/15/18 10:59 10:59 11:59 11:59 Intake Total 100 / 100 Balance 100 / 100 Weight 168 lb Narrative: Patient is pleasant, talkative, oriented x3. Neurologic exam intact. Oropharynx clear. Lungs are clear in the anterior and posterior boss, heart rate regular. Abdomen is softer, very diminished bowel sounds and rubber mill tender but very slightly improved. No clubbing or edema. Assessment and Plan (1) Acute diverticulitis Current visit: Yes Status: Acute Category: Medical Code(s): K57.92 - Diverticulitis of intestine, part unspecified, without perforation or abscess without bleeding - Assessment and plan all Dx Assessment and Plan for all problems:: Complicated with microperforation. Continue current IV antibiotics. Leukocytosis is stable. Recheck tomorrow. Continue very cautious intake of water. Consider advancing to clear liquids if tolerates water and improves tomorrow. GI consultation today given her prior history of endoscopy with Dr. Lake.
--- NOTE | 2018-04-15 09:34 | Consult Report ---
<Graciela Horton - Last Filed: 04/15/18 09:30> *Admission Date: 04/14/18 *Chief complaint: Diverticulitis *History of present illness: Ms. Cooper is a 77-year-old female that presents to [facility] with acute onset left lower quadrant abdominal pain. Described as sharp. No r adiation. Pain located in the left lower quadrant. Awoke patient at 4 AM this morning. Brought to [facility] by private vehicle for further evaluation. No nausea or vomiting. No hematochezia or melena. No prior episodes. No alleviating or aggravating factors, however, patient has received pain medication and reports some improvement in left lower quadrant abdominal pain. No fevers or chills. Past medical history significant for prednisone use secondary to polymyalgia rheumatica. Prior colonoscopy in [address] Atul Lake. Reportedly "normal" per patient. No other complaints. CT imaging obtained during [facility] Emergency Department evaluation; findings consistent with complicated diverticulitis. Scattered low volume pneumoperitoneum. No free fluid. [facility] History Medical History: Reports:: Hypertension Denies:: Diabetes Mellitus Type 1, Diabetes Mellitus Type 2 *Have you ever received a pneumonia vaccine?: Yes *Have you received a flu vaccine this season?: Yes Laterality Cases: Right: Arthroscopy Shoulder, Bilateral: Tonsillectomy, Other Other Surgeries: Yes: Cholecystectomy - *Social History Educational Level: Attended Grade School Smoking Status: Never smoker Alcohol Intake: never *Occupational Status:: retired Housing: house Household Members: spouse *Travel in the last 8 weeks: None - Psychiatric History Expresses thoughts of harming self/others: None Suicide Plan Description: No Plan Family Hx:: No significant family history Review of Systems - Constitutional Reports fatigue - *Gastrointestinal Reports abdominal pain Meds Home Medications Medication Instructions Recorded Confirmed Type Aspirin [Aspir 81] 81 mg PO DAILY 04/13/18 04/13/18 History Cholecalciferol (Vitamin D3) 1,000 unit PO DAILY 04/13/18 04/13/18 History [Vitamin D3 1,000 Unit Cap] Losartan/Hydrochlorothiazide 1 each PO DAILY 04/13/18 04/13/18 History [Losartan-Hctz 100-12.5 mg Tab] Methylcellulose [Fiber Therapy] 500 mg PO DAILY 04/13/18 04/13/18 History Naproxen 500 mg PO DAILY 04/13/18 04/13/18 History predniSONE [Deltasone 1mg tablet] 4 mg PO DAILY 04/13/18 04/14/18 History Allergies Allergy/AdvReac Type Severity Reaction Status Date / Time adhesive Allergy UNKNOWN Verified 04/15/18 12:00 codeine [CODEINE] AdvReac Mild NA-NAUSEA Verified 04/13/18 08:36 Exam Vital signs and Labs for Last 24 Hours: Temp Pulse Resp BP Pulse Ox 98.2 F 77 18 115/60 93 L 04/15/18 08:00 04/15/18 08:00 04/15/18 08:00 04/15/18 08:00 04/15/18 08:00 Laboratory Results - last 24 hr 04/15/18 05:35: WBC 15.4 H, RBC 3.72 L, Hgb 10.9 L, Hct 34.3 L, MCV 92.3, MCH 29.3, MCHC 31.7 L, RDW 13.5, Plt Count 148, MPV 8.4, Neut % (Auto) 91.7 H, Lymph % (Auto) 5.8 L, [place] % (Auto) 2.1, Eos % (Auto) 0.4, Baso % (Auto) 0.1, Neut # (Auto) 14.1 H, Lymph # (Auto) 0.9, [place] # (Auto) 0.3, Eos # (Auto) 0.1, Baso # (Auto) 0.0, Total Counted 100, Neutrophils % (Manual) 81 H, Band Neutrophils % 11.0 H, Lymphocytes % (Manual) 8 L, Platelet Estimate Normal, Hypochromasia 1+, Macrocytosis 1+ 04/15/18 05:35: Sodium 146 H, Potassium 4.0, Chloride 113 H, Carbon Dioxide 22, Anion Gap 15.0, BUN 32 H, Creatinine 1.01, Estimated Creat Clear 57, Estimated GFR 53 L, Est GFR ( Amer) 64, Glucose 135 H, Calcium 7.5 L, Total Bilirubin 1.0, AST 15, ALT 17 D, Alkaline Phosphatase 61, Total Protein 4.9 L D , Albumin 2.1 L, Globulin 2.8, Albumin/Globulin Ratio 0.8 L I & O for Last 24 hours: Intake & Output 04/12/18 04/13/18 04/14/1811/19 22:59 22:59 23:59 23:59 Intake Total Balance Weight - *Routine Abdominal Exam Present: soft, normoactive bowel sounds, tenderness Internal Medicine - CN: Reslt - Labs CBC & Chem 7: 04/15/18 05:35 04/15/18 05:35 Labs: Short CBC 04/15/18 Range/Units 05:35 WBC 15.4 H (4.8-10.8) K/mm3 Hgb 10.9 L (12.2-16.2) g/dL Hct 34.3 L (37.0-47.0) % Plt Count 148 (142-424) K/mm3 BMP 04/15/18 05:35 Sodium 146 H Potassium 4.0 Chloride 113 H Carbon Dioxide 22 BUN 32 H Creatinine 1.01 Glucose 135 H Calcium 7.5 L Liver Function 04/15/18 Range/Units 05:35 Total Bilirubin 1.0 (0.2-1.0) mg/dL AST 15 (15-37) U/L ALT 17 D (12-78) U/L Alkaline Phosphatase 61 (46-116) U/L Albumin 2.1 L (3.4-5.0) gm/dL Assessment and Plan (1) Acute diverticulitis Current visit: Yes Status: Acute Category: Medical Code(s): K57.92 - Diverticulitis of intestine, part unspecified, without perforation or abscess without bleeding - Assessment and plan all Dx Assessment and Plan for all problems:: 1.) Acute Complicated Diverticulitis - Continue IV ABX and recommend surgical evaluation once pt is stable. More than likely will need sigmoid resection for prevention of further infection with perforation. No additional colonoscopy or Flex Sig is required. Recommend low residue diet at d/c and continued fiber supplementation and daily probiotics. f/u with PCP in 1-2 weeks. <Atul Lake - Last Filed: 04/15/18 15:14> *History of present illness: This does represent complicated diverticulitis with this perforation. Presently, she requires bowel rest, IV antibiotics and completion of 14 days of oral antibiotics. 75% of cases of diverticulitis are uncomplicated and do not require surgery. In complicated diverticulitis which this patient has, the risk of greater complication (sepsis or peritonitis or both) with future bouts warrant surgery for those patients with perforation (complicated diverticulitis). The patient certainly needs completion of antibiotics and resolution of inflammation. Subsequently, the patient should have elective sigmoid resection. I will make sure this is followed through for elective surgery at a later point. The patient did have a colonoscopy with me in 2016. No necessity to repeat this presently. Exam Vital signs and Labs for Last 24 Hours: Temp Pulse Resp BP Pulse Ox 98.2 F 77 18 115/60 91 L 04/15/18 08:00 04/15/18 08:00 04/15/18 08:00 04/15/18 08:00 04/15/18 08:00 Laboratory Results - last 24 hr 04/15/18 05:35: WBC 15.4 H, RBC 3.72 L, Hgb 10.9 L, Hct 34.3 L, MCV 92.3, MCH 29.3, MCHC 31.7 L, RDW 13.5, Plt Count 148, MPV 8.4, Neut % (Auto) 91.7 H, Lymph % (Auto) 5.8 L, [place] % (Auto) 2.1, Eos % (Auto) 0.4, Baso % (Auto) 0.1, Neut # (Auto) 14.1 H, Lymph # (Auto) 0.9, [place] # (Auto) 0.3, Eos # (Auto) 0.1, Baso # (Auto) 0.0, Total Counted 100, Neutrophils % (Manual) 81 H, Band Neutrophils % 11.0 H, Lymphocytes % (Manual) 8 L, Platelet Estimate Normal, Hypochromasia 1+, Macrocytosis 1+ 04/15/18 05:35: Sodium 146 H, Potassium 4.0, Chloride 113 H, Carbon Dioxide 22, Anion Gap 15.0, BUN 32 H, Creatinine 1.01, Estimated Creat Clear 57, Estimated GFR 53 L, Est GFR ( Amer) 64, Glucose 135 H, Calcium 7.5 L, Total Bilirubin 1.0, AST 15, ALT 17 D, Alkaline Phosphatase 61, Total Protein 4.9 L D , Albumin 2.1 L, Globulin 2.8, Albumin/Globulin Ratio 0.8 L I & O for Last 24 hours: Intake & Output 04/12/18 04/13/18 04/14/18 04/15/18 22:59 22:59 23:59 23:59 Intake Total Balance Weight Internal Medicine - CN: Reslt - Labs CBC & Chem 7: 04/15/18 05:35 04/15/18 05:35 Labs: Short CBC 04/15/18 Range/Units 05:35 WBC 15.4 H (4.8-10.8) K/mm3 Hgb 10.9 L (12.2-16.2) g/dL Hct 34.3 L (37.0-47.0) % Plt Count 148 (142-424) K/mm3 BMP 04/15/18 05:35 Sodium 146 H Potassium 4.0 Chloride 113 H Carbon Dioxide 22 BUN 32 H Creatinine 1.01 Glucose 135 H Calcium 7.5 L Liver Function 04/15/18 Range/Units 05:35 Total Bilirubin 1.0 (0.2-1.0) mg/dL AST 15 (15-37) U/L ALT 17 D (12-78) U/L Alkaline Phosphatase 61 (46-116) U/L Albumin 2.1 L (3.4-5.0) gm/dL Assessment and Plan (1) Acute diverticulitis Current visit: Yes Status: Acute Category: Medical Code(s): K57.92 - Diverticulitis of intestine, part unspecified, without perforation or abscess without bleeding (2) Peritonitis Current visit: Yes Status: Acute Category: Medical Code(s): K65.9 - Peritonitis, unspecified
--- NOTE | 2018-04-15 13:37 | Progress Note ---
Subjective Narrative: Patient CT scan reveals increasing pneumoperitoneum and increasing fluid. Exam Vital signs and Labs for Last 24 Hours: Temp Pulse Resp BP Pulse Ox 98.2 F 77 18 115/60 91 L 04/15/18 08:00 04/15/18 08:00 04/15/18 08:00 04/15/18 08:00 04/15/18 08:00 Laboratory Results - last 24 hr 04/15/18 05:35: WBC 15.4 H, RBC 3.72 L, Hgb 10.9 L, Hct 34.3 L, MCV 92.3, MCH 29.3, MCHC 31.7 L, RDW 13.5, Plt Count 148, MPV 8.4, Neut % (Auto) 91.7 H, Lymph % (Auto) 5.8 L, [place] % (Auto) 2.1, Eos % (Auto) 0.4, Baso % (Auto) 0.1, Neut # (Auto) 14.1 H, Lymph # (Auto) 0.9, [place] # (Auto) 0.3, Eos # (Auto) 0.1, Baso # (Auto) 0.0, Total Counted 100, Neutrophils % (Manual) 81 H, Band Neutrophils % 11.0 H, Lymphocytes % (Manual) 8 L, Platelet Estimate Normal, Hypochromasia 1+, Macrocytosis 1+ 04/15/18 05:35: Sodium 146 H, Potassium 4.0, Chloride 113 H, Carbon Dioxide 22, Anion Gap 15.0, BUN 32 H, Creatinine 1.01, Estimated Creat Clear 57, Estimated GFR 53 L, Est GFR ( Amer) 64, Glucose 135 H, Calcium 7.5 L, Total Bilirubin 1.0, AST 15, ALT 17 D, Alkaline Phosphatase 61, Total Protein 4.9 L D , Albumin 2.1 L, Globulin 2.8, Albumin/Globulin Ratio 0.8 L I & O for Last 24 hours: Intake & Output 04/13/18 04/14/18 04/15/18 04/16/18 10:59 11:59 11:59 11:59 Intake Total 100 / 100 Balance 100 / 100 Weight 168 lb - *Routine Abdominal Exam Present: distended Comments: She has some guarding and rebound in the left lower, right lower, and left upper quadrant. Abdomen is somewhat distended. Progress Note: A&P (1) Acute diverticulitis Status: Acute Current Visit: Yes Assessment and Plan for All Diagnoses:: Patient has worsening clinical condition and radiographic findings consistent with acute diverticulitis. Likely operative intervention is inevitable. I had a long discussion with the patient regarding this. She would prefer transfer to [place]. Arrangements will be made.
--- NOTE | 2018-04-15 14:05 | Discharge Summary ---
General - General Admission date:: 04/13/18 Discharge date: 04/15/18 HPI HPI: Ms. Cooper is a 77-year-old female that presents to [facility] with acute onset left lower quadrant abdominal pain. Described as sharp. No radiation. Pain located in the left lower quadrant. Awoke patient at 4 AM this morning. Brought to [facility] by private vehicle for further evaluation. No nausea or vomiting. No hematochezia or melena. No prior episodes. No alleviating or aggravating factors, however, patient has received pain medication and reports some improvement in left lower quadrant abdominal pain. No fevers or chills. Past medical history significant for prednisone use secondary to polymyalgia rheumatica. Prior colonoscopy [place] [address] Atul Lake. Reportedly "normal" per patient. No other complaints. CT imaging obtained during [facility] Emergency Department evaluation; findings consistent with complicated diverticulitis. Scattered low volume pneumoperitoneum. No free fluid. Hospital Course Hospital Course: Patient was admitted to hospital, placed on broad-spectrum IV antibiotics and bowel rest. Over the next 24 hours she stabilized, with no further fevers and with slightly improved pain. This morning her pain was somewhat better with a softer abdomen, but remained significantly afflicted with leukocytosis and pain when she moved around. Surgical consultation ordered another CT scan with p.o. contrast which revealed worsening free air and ongoing significant inflammation. It was determined she would most likely need surgical management and patient requested transfer to [facility] surgery department which was arranged. Objective Vital signs: Temp Pulse Resp BP Pulse Ox 98.2 F 77 18 115/60 91 L 04/15/18 08:00 04/15/18 08:00 04/15/18 08:00 04/15/18 08:00 04/15/18 08:00 Narrative: See exam notes from progress notes this morning and surgical consultation note. Results Labs on day of discharge: Labs from last 24 hours 04/15/18 04/15/18 05:35 05:35 WBC 15.4 H RBC 3.72 L Hgb 10.9 L Hct 34.3 L MCV 92.3 MCH 29.3 MCHC 31.7 L RDW 13.5 Plt Count 148 MPV 8.4 Neut % (Auto) 91.7 H Lymph % (Auto) 5.8 L [place] % (Auto) 2.1 Eos % (Auto) 0.4 Baso % (Auto) 0.1 Neut # (Auto) 14.1 H Lymph # (Auto) 0.9 [place] # (Auto) 0.3 Eos # (Auto) 0.1 Baso # (Auto) 0.0 Total Counted 100 Neutrophils % (Manual) 81 H Band Neutrophils % 11.0 H Lymphocytes % (Manual) 8 L Platelet Estimate Normal Hypochromasia 1+ Macrocytosis 1+ Sodium 146 H Potassium 4.0 Chloride 113 H Carbon Dioxide 22 Anion Gap 15.0 BUN 32 H Creatinine 1.01 Estimated Creat Clear 57 Estimated GFR 53 L Est GFR ( Amer) 64 Glucose 135 H Calcium 7.5 L Total Bilirubin 1.0 AST 15 ALT 17 D Alkaline Phosphatase 61 Total Protein 4.9 L D Albumin 2.1 L Globulin 2.8 Albumin/Globulin Ratio 0.8 L DS: Diagnosis - Discharge Diagnosis (1) Acute diverticulitis Status: Acute (2) Peritonitis Status: Acute Discharge Plan - Patient Discharge Instructions ACTIVITY: Continue current activity DIET: NPO Patient Instructions: DI for Diverticulitis - Follow up Plan Follow up with: Mc Emerson MD [Staff Physician] - Disposition: Xfer Short-Term Hosp Home Medications: Home Medications Medication Instructions Recorded Confirmed Type Aspirin [Aspir 81] 81 mg PO DAILY 04/13/18 04/13/18 History Cholecalciferol (Vitamin D3) 1,000 unit PO DAILY 04/13/18 04/13/18 History [Vitamin D3 1,000 Unit Cap] Losartan/Hydrochlorothiazide 1 each PO DAILY 04/13/18 04/13/18 History [Losartan-Hctz 100-12.5 mg Tab] Methylcellulose [Fiber Therapy] 500 mg PO DAILY 04/13/18 04/13/18 History Naproxen 500 mg PO DAILY 04/13/18 04/13/18 History predniSONE [Deltasone 1mg tablet] 4 mg PO DAILY 04/13/18 04/14/18 History Prescriptions/Medication Reconciliation: Discontinued Losartan/Hydrochlorothiazide [Losartan-Hctz 100-12.5 mg Tab] 1 each PO DAILY Naproxen 500 mg PO DAILY Methylcellulose [Fiber Therapy] 500 mg PO DAILY Aspirin [Aspir 81] 81 mg PO DAILY Cholecalciferol (Vitamin D3) [Vitamin D3 1,000 Unit Cap] 1,000 unit PO DAILY predniSONE [Deltasone 1mg tablet] 4 mg PO DAILY
== END 2018-04-15 19:21 | disposition short-term general hospital (02) | DRG 392 ==
LOC: ER 06:50 → 2ND 06:50
PROVIDERS: ADMIT Family Medicine; ATTEND Internal Medicine Adolescent Medicine
CPT/HCPCS: 36415; 74176; 74177; 80048; 80053; 82150; 83690; 85007; 85025; 96365; 96367; 96375; 99284; G0378; J1335; J1956; J2405; Q9967

== ENCOUNTER → 2018-05-17 12:12 | Outpatient (CLI) | payer MEDICARE, OTHER, SELFPAY | PROVIDERS: Visit Provider Internal Medicine | DX: S31.109A Unspecified open wound of abdominal wall, unspecified quadrant without penetration into peritoneal cavity, initial encounter (principal) | CPT/HCPCS: 87070; 87186; 87205 ==

== ENCOUNTER → 2018-06-27 08:13 | Outpatient (CLI) | payer MEDICARE, OTHER, SELFPAY ==
--- NOTE | 2018-06-27 08:16 | MM_ITS ---
MM Dig screening mamm BI w/CAD ORDERING PHYSICIAN : Bello Lion PATIENT AGE: 78 years GENDER: Female COMPARISON: [facility] 2011 r 2012, 2013, 2014, February 2016, 2017. INDICATION: Routine screening. No hormones. No new complaints. Noncontributory family history. Previous stereotactic biopsy right breast noted. TECHNIQUE: Standard CC and MLO images were obtained. R2 CAD reviewed. FINDINGS: Lower density breast. Generalized fatty replacement with minimal from bladder elements. Minimal stable densities bilaterally with No new areas of concern. Indication right calcification without No malignancy evident radiographically. RIGHT BREAST: No new areas of concern Stable vague low-density round density 12:00 deep breast recommended 9 mm size unchanged since studies dating back to 2011 study. Tiny Metallic marker clip right upper quadrant from previous stereotactic biopsy also present since 2011 . LEFT BREAST: No new areas of concern Stable small 6 mm densities at the left breast unchanged since 2014 breast decreases to thousand 15 involving the knee Stable benign dense calcification more anteriorly also again noted. Early vascular calcifications bilateral. IMPRESSION: Stable bilateral mammogram with no significant new findings. Low-density breast with long-standing small stable areas of density bilaterally. Not of concern & can be followed BI-RADS Category: 1 Negative RECOMMENDED FOLLOW-UP: 1YR 1 YEAR FOLLOW-UP (A letter has been sent to the patient regarding results of the study.)
== END ==
PROVIDERS: PCP Internal Medicine; Visit Provider Internal Medicine
DX: Z12.31 Encounter for screening mammogram for malignant neoplasm of breast (principal)
CPT/HCPCS: 77067

== ENCOUNTER → 2019-07-01 09:20 | Outpatient (CLI) | payer MEDICARE, OTHER, SELFPAY ==
--- NOTE | 2019-07-01 09:33 | MM_ITS ---
PROCEDURE: MM DIG SCREENING MAMM BI W/CAD Digital Breast Tomosynthesis Included CLINICAL INDICATION: SCREENING There is no personal or family history of breast cancer. There has been a previous biopsy right breast for benign disease. COMPARISON: [facility] DIG MAMM-SCREEN EDER W/CAD from 02/09/2016 [facility] MM Dig screening mamm BI w/CAD from 02/27/2017 DIG MAMM-SCREEN EDER from 06/27/2018 TECHNIQUE: Standard CC and MLO images and 3D Tomosynthesis was obtained. R2 CAD reviewed. FINDINGS: Mild to moderate scattered fibroglandular densities are seen throughout both breasts. There is arterial calcification in both breasts. There is a benign-appearing microcalcification left breast near the nipple. There is a stable benign-appearing spherical density upper central portion right breast at the 12 o'clock position. 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 There is no suspicious lesion and no suspicious microcalcifications. IMPRESSION: Mild to moderate breast density with no suspicious lesions seen BI-RAD Category: 2 Benign Finding(s) FOLLOW-UP: 1YR 1 Year Follow-up (A letter has been sent to the patient regarding results of the study.) Dictated by: Dr. Dante Méndez MD 07/02/2019 14:[address] Dante Méndez MD in [place] 07/02/2019 14:22
== END ==
PROVIDERS: PCP Internal Medicine; Visit Provider Internal Medicine
DX: Z12.31 Encounter for screening mammogram for malignant neoplasm of breast (principal)
CPT/HCPCS: 77063; 77067

== ENCOUNTER → 2020-06-25 10:21 | Outpatient (CLI) | payer MEDICARE, OTHER, SELFPAY ==
--- NOTE | 2020-06-25 10:30 | MM_ITS ---
PROCEDURE INFORMATION: Exam: MG Screening 3D Mammography Exam date and time: 06/25/2020 10:30 AM Age: 80 years old Clinical indication: Screening mammogram TECHNIQUE: Imaging protocol: Screening tomosynthesis and 2D mammography including computer-aided detection (CAD) when performed. COMPARISON: 1. MG MM DIG SCREENING MAMM BI W/CAD 07/01/2019 9:34 AM 2. MG DIG MAMM-SCREEN EDER 06/27/2018 8:28 AM 3. MG SCBI MM Dig screening mamm BI w/CAD 02/27/2017 4:27 PM 4. MG DMSB DIG MAMM-SCREEN EDER W/CAD 02/09/2016 11:04 AM FINDINGS: MAMMOGRAPHY: Breast composition: There are scattered areas of fibroglandular density. Mass: Stable benign-appearing subcentimeter nodules are present in the bilateral breasts. No new or morphologically suspicious nodule has developed to suggest malignancy. Architectural distortion: No new or suspicious architectural distortion. Calcifications: No new or suspicious calcifications are present Asymmetric density: No new or suspicious asymmetric density is present Skin thickening: None. Axillary adenopathy: None. IMPRESSION: No mammographic evidence of malignancy. Recommend annual screening mammography unless otherwise clinically indicated. ASSESSMENT: BI-RADS category 2: Benign
== END ==
PROVIDERS: PCP Internal Medicine; Visit Provider Internal Medicine
DX: Z12.31 Encounter for screening mammogram for malignant neoplasm of breast (principal)
CPT/HCPCS: 77063; 77067

== ENCOUNTER → 2020-12-24 09:54 | Outpatient (CLI) | payer MEDICARE, OTHER, SELFPAY ==
[2020-12-24 10:28] LABS: Basophils # 0.2 K/mm3 (0-0.2); Basophils % 2.1 % (0.1-2.0); Eosinophils # 0.2 K/mm3 (0.0-0.4); Eosinophils % 1.5 % (0.1-12.0); Hematocrit 40.6 % (37.0-47.0); Hemoglobin 13.2 g/dL (12.2-16.2); Lymphocytes # 3.5 K/mm3 (0.7-4.5); Lymphocytes % 31.7 % (10-50); Mean Corpuscular HGB Conc 32.5 g/dL (31.8-35.4); Mean Corpuscular Hemoglobin 27.4 pg (27.0-31.2); Mean Corpuscular Volume 84.2 fl (81-99); Mean Platelet Volume 9.4 fl (7.4-10.4); Monocytes # 0.8 K/mm3 (0.1-1.0); Monocytes % 7.2 % (1.7-9.3); Neutrophils # 6.3 K/mm3 (1.8-7.8); Neutrophils % 57.6 % (37.0-80.0); Platelet Count 296 K/mm3 (142-424); Red Blood Count 4.83 M/mm3 (4.20-5.40); Red Cell Distribution Width 14.7 % (11.5-17.5); White Blood Count 10.9 K/mm3 (4.8-10.8)
[2020-12-24 11:51] LABS: Alanine Aminotransferase 17 U/L (12-78); Albumin Level 4.4 g/dl (3.5-5.0); Albumin/Globulin Ratio 1.4 (1.1-1.8); Alkaline Phosphatase 90 U/L (38-126); Anion Gap 13.3 mEq/L (5-15); Aspartate Amino Transferase 28 U/L (14-36); Bilirubin,Total 0.4 mg/dl (0.2-1.3); Blood Urea Nitrogen 17 mg/dl (7-17); Calcium 9.3 mg/dl (8.4-10.2); Carbon Dioxide 28 mmol/L (22.0-30.0); Chloride 102 mmol/L (98-107); Chol/HDL Ratio 3.9 (1-3.5); Cholesterol 227 mg/dl (140-200); Estimated Glomerular Filt Rate 60 ml/min (>60); GFR (African American) 73 ML/MIN (>60); Globulin 3.1 g/dL (1.3-3.2); Glucose 109 mg/dl (74-100); HDL Cholesterol 58 mg/dl (40-60); Potassium 4.3 mmoL/L (3.5-5.1); Sodium 139 mmol/L (136-145); Total Protein,Serum 7.5 g/dl (6.3-8.2); Triglycerides 222 mg/dl (30-150); VLDL Cholesterol 44 mg/dL (0-40)
[2020-12-24 11:55] LABS: 25-OH Vitamin D, Total 44.3 ng/mL (30-100)
[2020-12-24 12:08] LABS: Direct LDL Cholesterol 113.79 mg/dL (100-129)
== END ==
PROVIDERS: Visit Provider Internal Medicine
DX: I10 Essential (primary) hypertension (principal); E78.5 Hyperlipidemia, unspecified; D64.9 Anemia, unspecified; N95.1 Menopausal and female climacteric states
CPT/HCPCS: 36415; 80053; 80061; 82306; 85025

== ENCOUNTER 2021-04-06 07:40 | Emergency (ER) | payer MEDICARE, OTHER, SELFPAY ==
[2021-04-06] VITALS (8 sets, daily range): BP systolic 120–156; BP diastolic 63–78; PULSE 70–108; RESP 16–18; TEMP 36.6; O2SAT 90–97; BMI 26.5
--- NOTE | 2021-04-06 08:13 | CT_ITS ---
FINAL REPORT CLINICAL HISTORY: n/v, h/o multiple bowel sgy assess for obstruction COMPARISON: 11/29/2018 FINDINGS: Technique: The patient was injected with intravenous contrast. Axial images through the abdomen and pelvis were performed. This study was performed with techniques to keep radiation doses as low as reasonably achievable (ALARA). Individualized dose reduction techniques using automated exposure control or adjustment of mA and/or kV according to the patient's size were employed. Abdomen: The lung bases are clear. The liver is normal in size and attenuation. The patient is status post cholecystectomy. The spleen is unremarkable. There is a stable left adrenal nodule measuring 16 mm, likely an adenoma. The pancreas is unremarkable. The kidneys enhance appropriately. The aorta is normal in caliber. There is no free fluid or adenopathy. There are multiple ventral hernias containing nonobstructed small bowel, new since prior including a new parastomal hernia. Pelvis: The appendix is not identified. There are interval postoperative changes of the descending colon. There is no evidence of bowel obstruction. Left pelvis ostomy is identified. The urinary bladder is unremarkable. There is no free fluid or adenopathy. IMPRESSION: Multiple ventral hernias as detailed above. Postoperative changes. No evidence of bowel obstruction. Reviewed, Interpreted and Dictated by Jason Galdamez III, MD Transcribed by Ambika Madrid Authenticated by Jason Galdamez III, MD on 04/06/2021 09:28:23 AM [facility]
--- NOTE | 2021-04-06 08:14 | HMH.EDGENADL ---
ED Disposition Clinical Impression: Gastroenteritis, Dehydration, PURNIMA (acute kidney injury) Disposition: Home, Self-Care Condition on Discharge: Fair Instructions: DI for Diarrhea and Traveler's Diarrhea -- Adult, DI for Diarrhea and Traveler's Diarrhea -- Child, DI for Nausea -- Adult, DI for Nausea -- Child Additional Instructions: Please continue to monitor your condition closely at home. You may take Zofran for nausea and vomiting. Please continue to drink plenty of fluids. If your condition worsens, promptly present to the emergency department for reassessment. Otherwise, please follow-up with Dr. Lion on Sunday. Referrals: London Reed MD [Staff Physician] - - Critical Care Critical Care Time: No Attestation: On 04/06/21, the high probability of a clinically significant, sudden or life threatening deterioration of the following system(s) required my full and direct attention, intervention and personal management. The time I documented below is in addition to time spent performing reported procedures but includes the following listed in this critical care notation. Medical Decision Making - Medical Records Medical records reviewed: Yes: I reviewed the patient's medical records. - Alex Inquiry Pt receiving controlled substance: No Vital Signs: 04/06/21 07:41 04/06/21 08:00 04/06/21 08:30 Temperature 97.8 F Temperature Source Oral Pulse Rate 93 H 91 H Pulse Rate [Radial] 108 H Respiratory Rate 16 18 18 Blood Pressure 137/78 146/63 H Blood Pressure [Right Arm] 120/74 Blood Pressure Mean 97 90 Blood Pressure Mean [Right Arm] 89 Blood Pressure Position [Right Arm] Sitting 02 Sat by Pulse Oximetry 95 95 97 Oxygen Delivery Method Room Air 04/06/21 09:30 04/06/21 10:00 04/06/21 10:30 Temperature Temperature Source Pulse Rate 70 77 75 Pulse Rate [Radial] Respiratory Rate Blood Pressure Blood Pressure [Right Arm] Blood Pressure Mean Blood Pressure Mean [Right Arm] Blood Pressure Position [Right Arm] 02 Sat by Pulse Oximetry 96 95 94 L Oxygen Delivery Method 04/06/21 10:45 Temperature Temperature Source Pulse Rate 90 Pulse Rate [Radial] Respiratory Rate Blood Pressure 156/71 H Blood Pressure [Right Arm] Blood Pressure Mean Blood Pressure Mean [Right Arm] Blood Pressure Position [Right Arm] 02 Sat by Pulse Oximetry 90 L Oxygen Delivery Method - Lab Data Lab results reviewed: Yes: I reviewed the patient's lab results. Lab Results 04/06/21 08:00: WBC 13.7 H, RBC 5.47 H, Hgb 15.2, Hct 48.9 H, MCV 89.3, MCH 27.7, MCHC 31.1 L, RDW 15.0, Plt Count 420, MPV 8.8, Neut % (Auto) 82.7 H, Lymph % (Auto) 8.5 L, Crane % (Auto) 7.7, Eos % (Auto) 0.4, Baso % (Auto) 0.7, Neut # (Auto) 11.3 H, Lymph # (Auto) 1.2, Crane # (Auto) 1.1 H, Eos # (Auto) 0.1, Baso # (Auto) 0.1 04/06/21 08:00: Sodium 142, Potassium 4.7, Chloride 102, Carbon Dioxide 23, Anion Gap 21.7 H, BUN 32 H, Creatinine 1.70 H, Estimated Creat Clear 29, Estimated GFR 29 L, Est GFR ( Amer) 35 L, Glucose 212 H, Calcium 9.8, Total Bilirubin 0.9, AST 37 H, ALT 28, Alkaline Phosphatase 118, Troponin I < 0.01, Total Protein 9.4 H D, Albumin 5.1 H, Globulin 4.3 H, Albumin/Globulin Ratio 1.2, Lipase 80 04/06/21 09:07: Lactate 3.2 H 04/06/21 09:41: SARS-CoV-2 (PCR) Not detected, Influenza A Untype (PCR) Not detected, Influenza Type B (PCR) Not detected Result diagrams: 04/06/21 08:00 04/06/21 08:00 Orders (Tests/Meds): ED MEDICATIONS Generic Name Dose Route Start Last Admin Trade Name Freq PRN Reason Stop Dose Admin Lactated Ringer's 1,000 mls @ 999 mls/hr 04/06/21 11:00 04/06/21 10:48 Lactated Ringer's 1000 Ml Bag IV 04/06/21 12:00 999 mls/hr .Q1H1M ADELE Administration Discontinued Medications Generic Name Dose Route Start Last Admin Trade Name Freq PRN Reason Stop Dose Admin Lactated Ringer's 1,000 mls @ 999 mls/hr 04/06/21 08:00 04/06/21 08:07 Lactated
--- NOTE | 2021-04-06 08:17 | PC.NURSE ---
spoke with joseluis in care management about admission
--- NOTE | 2021-04-06 08:24 | ECG_ITS ---
APPROVED REPORT Exam: Resting ECG HR:75 bpm ECG Measurements Heart Rate 75 AXES RI 173 P 62 QRSd 84 QRS -53 QT 377 T 67 QTc 407 Conclusion SINUS RHYTHM LEFT ANTERIOR FASCICULAR BLOCK [QRS AXIS <= -45, QR IN I, RS IN II] VOLTAGE CRITERIA FOR LVH [MEETS CRITERIA IN ONE OF: R(aVL), S(V1), R(V5), R(V5/V6)+S(V1)] ABNORMAL ECG UNCONFIRMED REPORT Electronically signed by : Atilio Agudelo MD 04/08/2021 16:08:37
[2021-04-06 08:25] LABS: Basophils # 0.1 K/mm3 (0-0.2); Basophils % 0.7 % (0.1-2.0); Eosinophils # 0.1 K/mm3 (0.0-0.4); Eosinophils % 0.4 % (0.1-12.0); Hematocrit 48.9 % (37.0-47.0); Hemoglobin 15.2 g/dL (12.2-16.2); Lymphocytes # 1.2 K/mm3 (0.7-4.5); Lymphocytes % 8.5 % (10-50); Mean Corpuscular HGB Conc 31.1 g/dL (31.8-35.4); Mean Corpuscular Hemoglobin 27.7 pg (27.0-31.2); Mean Corpuscular Volume 89.3 fl (81-99); Mean Platelet Volume 8.8 fl (7.4-10.4); Monocytes # 1.1 K/mm3 (0.1-1.0); Monocytes % 7.7 % (1.7-9.3); Neutrophils # 11.3 K/mm3 (1.8-7.8); Neutrophils % 82.7 % (37.0-80.0); Platelet Count 420 K/mm3 (142-424); Red Blood Count 5.47 M/mm3 (4.20-5.40); White Blood Count 13.7 K/mm3 (4.8-10.8)
[2021-04-06 08:26] LABS: Albumin Level 5.1 g/dl (3.5-5.0); Albumin/Globulin Ratio 1.2 (1.1-1.8); Alkaline Phosphatase 118 U/L (38-126); Anion Gap 21.7 mEq/L (5-15); Bilirubin,Total 0.9 mg/dl (0.2-1.3); Blood Urea Nitrogen 32 mg/dl (7-17); Calcium 9.8 mg/dl (8.4-10.2); Carbon Dioxide 23 mmol/L (22.0-30.0); Chloride 102 mmol/L (98-107); Creatinine Clearance Estimated 29 mL/min (50-200); Estimated Glomerular Filt Rate 29 ml/min (>60); GFR (African American) 35 ML/MIN (>60); Globulin 4.3 g/dL (1.3-3.2); Glucose 212 mg/dl (74-100); Lipase 80 U/L (23-300); Potassium 4.7 mmoL/L (3.5-5.1); Sodium 142 mmol/L (136-145); Total Protein,Serum 9.4 g/dl (6.3-8.2)
[2021-04-06 09:15] LABS: Troponin I < 0.01 ng/ml (0.00-0.034)
--- NOTE | 2021-04-06 09:40 | PC.NURSE ---
called dr pacheco's office for admission. office staff advised he will call back
[2021-04-06 09:45] LABS: Alanine Aminotransferase 28 U/L (12-78); Aspartate Amino Transferase 37 U/L (14-36)
[2021-04-06 09:50] LABS: Coronavirus 19, PCR Not Detected (NotDetected); Influenza A, PCR Not Detected (NotDetected); Influenza B, PCR Not Detected (NotDetected)
[2021-04-06 09:55] LABS: Lactic Acid 3.2 mmol/L (0.7-2.1)
--- NOTE | 2021-04-06 10:13 | PC.NURSE ---
left a message with dr. pacheco office r/t pt states she has decided she does not want to be admitted to the hospital now.
--- NOTE | 2021-04-06 10:14 | PC.NURSE ---
KODAK ADLER speaking with Dr. Lion who is pts pcp r/t follow up for pt
--- NOTE | 2021-04-06 10:48 | PC.NURSE ---
pt is doing a PO challenge per MD
[2021-04-06 11:50] LABS: Troponin I < 0.01 ng/ml (0.00-0.034)
[2021-04-06 13:20] LABS: Reflex Lactic Add Lactic Reflex
== END 2021-04-06 11:49 | disposition home or self-care (01) ==
PROVIDERS: Emergency Medicine; Emergency Provider Emergency Medicine; PCP Internal Medicine
DX: E86.0 Dehydration (principal); N17.9 Acute kidney failure, unspecified; K52.9 Noninfective gastroenteritis and colitis, unspecified; I10 Essential (primary) hypertension; Z79.899 Other long term (current) drug therapy; Z20.822 Contact with and (suspected) exposure to COVID-19
CPT/HCPCS: 74176; 80053; 83605; 83690; 84484; 85025; 93005; 96365; 96375; 99284; C9803; J2405; U0003; U0005

== ENCOUNTER 2021-04-08 09:44 | Observation (INO) | payer MEDICARE, OTHER, SELFPAY ==
[2021-04-08] VITALS (16 sets, daily range): BP systolic 118–173; BP diastolic 62–93; PULSE 68–117; RESP 12–20; TEMP 36.5–36.9; O2SAT 94–98; BMI 26.5; BMI 27.3
--- NOTE | 2021-04-08 09:55 | PC.NURSE ---
ER at bedside
[2021-04-08 10:30] LABS: Alanine Aminotransferase 55 U/L (12-78); Albumin/Globulin Ratio 1.3 (1.1-1.8); Alkaline Phosphatase 110 U/L (38-126); Anion Gap 23.5 mEq/L (5-15); Aspartate Amino Transferase 77 U/L (14-36); Bilirubin,Total 0.9 mg/dl (0.2-1.3); Blood Urea Nitrogen 53 mg/dl (7-17); Calcium 9.3 mg/dl (8.4-10.2); Carbon Dioxide 18 mmol/L (22.0-30.0); Chloride 99 mmol/L (98-107); Creatinine Clearance Estimated 33 mL/min (50-200); Estimated Glomerular Filt Rate 33 ml/min (>60); GFR (African American) 41 ML/MIN (>60); Glucose 159 mg/dl (74-100); Lipase 198 U/L (23-300); Potassium 3.5 mmoL/L (3.5-5.1); Sodium 137 mmol/L (136-145)
--- NOTE | 2021-04-08 11:37 | HMH.EDGENADL ---
ED Disposition Clinical Impression: Gastroenteritis, PURNIMA (acute kidney injury), Dehydration Disposition: Admitted as Observation Condition on Discharge: Fair Instructions: DI for Diarrhea and Traveler's Diarrhea -- Adult Referrals: Bello Lion [Primary Care Provider] - - Critical Care Critical Care Time: No Attestation: On 04/08/21, the high probability of a clinically significant, sudden or life threatening deterioration of the following system(s) required my full and direct attention, intervention and personal management. The time I documented below is in addition to time spent performing reported procedures but includes the following listed in this critical care notation. Medical Decision Making - Medical Records Medical records reviewed: Yes: I reviewed the patient's medical records. - Alex Inquiry Pt receiving controlled substance: No Vital Signs: 04/08/21 09:47 04/08/21 10:00 04/08/21 10:30 Temperature 98.4 F Temperature Source Oral Pulse Rate 100 H 96 H Pulse Rate [Radial] 117 H Respiratory Rate 16 14 19 Blood Pressure 158/92 H 142/86 H Blood Pressure [Right Arm] 158/92 H Blood Pressure Mean Blood Pressure Mean [Right Arm] 114 Blood Pressure Position [Right Arm] Sitting 02 Sat by Pulse Oximetry 98 95 95 Oxygen Delivery Method Room Air 04/08/21 10:56 04/08/21 11:00 04/08/21 11:30 Temperature Temperature Source Pulse Rate 93 H 97 H 86 Pulse Rate [Radial] Respiratory Rate 15 16 14 Blood Pressure 142/86 H 160/93 H 136/81 Blood Pressure [Right Arm] Blood Pressure Mean 104 100 93 Blood Pressure Mean [Right Arm] Blood Pressure Position [Right Arm] 02 Sat by Pulse Oximetry 96 95 95 Oxygen Delivery Method 04/08/21 12:00 Temperature Temperature Source Pulse Rate 90 Pulse Rate [Radial] Respiratory Rate 12 Blood Pressure 126/78 Blood Pressure [Right Arm] Blood Pressure Mean 97 Blood Pressure Mean [Right Arm] Blood Pressure Position [Right Arm] 02 Sat by Pulse Oximetry 95 Oxygen Delivery Method - Lab Data Lab Results 04/08/21 10:15: Sodium 137, Potassium 3.5 D, Chloride 99, Carbon Dioxide 18 L, Anion Gap 23.5 H, BUN 53 H D, Creatinine 1.50 H, Estimated Creat Clear 33, Estimated GFR 33 L, Est GFR ( Amer) 41 L, Glucose 159 H, Calcium 9.3, Total Bilirubin 0.9, AST 77 H D, ALT 55 D, Alkaline Phosphatase 110, Total Protein 9.0 H, Albumin 5.0, Globulin 4.0 H, Albumin/Globulin Ratio 1.3, Lipase 198 04/08/21 10:15: Acetone Level Small 04/08/21 11:24: WBC 11.6 H, RBC 5.45 H, Hgb 15.2, Hct 46.6, MCV 85.4, MCH 27.9, MCHC 32.7, RDW 14.9, Plt Count 371, MPV 8.8, Neut % (Auto) 74.4, Lymph % (Auto) 15.1, Bartholomew % (Auto) 8.5, Eos % (Auto) 0.7, Baso % (Auto) 1.3, Neut # (Auto) 8.6 H, Lymph # (Auto) 1.7, Bartholomew # (Auto) 1.0, Eos # (Auto) 0.1, Baso # (Auto) 0.2 04/08/21 11:25: VBG pH 7.37, VBG pCO2 33.3 L, VBG pO2 141.3 H, VBG HCO3 18.7 L, VBG Total CO2 19.7 L, VBG O2 Saturation 98.1 H, VBG Base Excess -6.6 L Result diagrams: 04/08/21 11:24 04/08/21 10:15 Orders (Tests/Meds): ED MEDICATIONS Discontinued Medications Generic Name Dose Route Start Last Admin Trade Name Freq PRN Reason Stop Dose Admin Sodium Chloride 1,000 mls @ 999 mls/hr 04/08/21 10:00 04/08/21 11:25 Sod Chlor 0.9% 1000ml Bag IV 04/08/21 11:00 999 mls/hr .Q1H1M ADELE Administration Ondansetron HCl 4 mg 04/08/21 09:59 04/08/21 11:25 Ondansetron 4mg/2ml Vial IV 04/08/21 10:00 4 mg ONCE ONE Administration ORDERS Category Date Time Status Lactic Acid Stat Lab 04/08/21 11:40 Received Rapid PCR Covid and Flu A/B Stat Lab 04/08/21 12:09 Ordered Urinalysis and Microscopic Stat Lab 04/08/21 09:59 Ordered - Reevaluation(s) Time: 12:17 Reevaluation #1: On reevaluation, patient is feeling slightly better. She does have evidence of some worsening kidney injury. Patient also has some elevated acetone, however no history of diabetes. Patient wi
[2021-04-08 11:42] LABS: Basophils # 0.2 K/mm3 (0-0.2); Basophils % 1.3 % (0.1-2.0); Eosinophils # 0.1 K/mm3 (0.0-0.4); Eosinophils % 0.7 % (0.1-12.0); Hematocrit 46.6 % (37.0-47.0); Hemoglobin 15.2 g/dL (12.2-16.2); Lymphocytes # 1.7 K/mm3 (0.7-4.5); Lymphocytes % 15.1 % (10-50); Mean Corpuscular HGB Conc 32.7 g/dL (31.8-35.4); Mean Corpuscular Hemoglobin 27.9 pg (27.0-31.2); Mean Corpuscular Volume 85.4 fl (81-99); Mean Platelet Volume 8.8 fl (7.4-10.4); Monocytes % 8.5 % (1.7-9.3); Neutrophils # 8.6 K/mm3 (1.8-7.8); Neutrophils % 74.4 % (37.0-80.0); Platelet Count 371 K/mm3 (142-424); Red Blood Count 5.45 M/mm3 (4.20-5.40); Red Cell Distribution Width 14.9 % (11.5-17.5); White Blood Count 11.6 K/mm3 (4.8-10.8)
[2021-04-08 11:42] LABS: Acetone, Serum (Rapid) Small (None Detect)
[2021-04-08 11:55] LABS: VBG Base Excess -6.6 mmol/L (-2.4-2.3); VBG HCO3 18.7 mmol/L (23-30); VBG Oxygen Saturation 98.1 % (50-70); VBG PCO2 33.3 mmol/L (35-51); VBG PH 7.37 mmol/L (7.31-7.41); VBG PO2 141.3 mmol/L (28-40); VBG Total CO2 19.7 mmol/L (23-27)
[2021-04-08 11:58] LABS: Lactic Acid 1.2 mmol/L (0.7-2.1)
--- NOTE | 2021-04-08 12:11 | PC.NURSE ---
ED MD on phone with service conservator artifacts Dr; Dr. Richey
--- NOTE | 2021-04-08 12:18 | PC.NURSE ---
Called and spoke with house about admitting patient. Will call back with a room
[2021-04-08 12:27] LABS: Coronavirus 19, PCR Not Detected (NotDetected); Influenza A, PCR Not Detected (NotDetected); Influenza B, PCR Not Detected (NotDetected)
--- NOTE | 2021-04-08 13:18 | HMH.PHAINT ---
MEDICATION RECONCILIATION COMPLETED ON PATIENT USING EXTERNAL FILL HISTORY FROM PHARMACY. -VINH BROWN, EYADD
--- NOTE | 2021-04-08 13:56 | PC.NURSE ---
REPORT CALLED TO FLOOR
--- NOTE | 2021-04-08 14:04 | P.CONPHA_ITS ---
[facility] Pharmacy VTE Monitoring - Patient Demographics Admission date: 04/08/21 Report Date: 04/08/21 Time: 14:04 Allergies/Adverse Reactions: Patient Allergies adhesive Allergy (Verified 07/15/18 08:36) UNKNOWN codeine [CODEINE] Adverse Reaction (Mild, Verified 07/15/18 08:36) NA-NAUSEA Height: 1.6 m Weight: 68.039 kg Patient Problems: Current Active Problems Gastroenteritis (Acute) Dehydration (Acute) PURNIMA (acute kidney injury) (Acute) - VTE Risk Labs: VTE Related Lab Results Hgb 15.2 g/dL (12.2-16.2) 04/08/21 11:24 Hct 46.6 % (37.0-47.0) 04/08/21 11:24 Plt Count 371 K/mm3 (142-424) 04/08/21 11:24 BUN 53 mg/dl (7-17) H D 04/08/21 10:15 Creatinine 1.50 mg/dl (0.52-1.04) H 04/08/21 10:15 Estimated Creat Clear 33 mL/min (50-200) 04/08/21 10:15 Was VTE Risk Assessment Performed: No Clinical Trial Participant: No - Prophylaxis VTE Prophylaxis Ordered?: Yes Types of VTE Prophylaxis: TEDS Knee High, Pharmacological Location of Applied Device: Bilateral Lower Extremeties Pharmacologic Type: Enoxaparin
[2021-04-08 15:45] LABS: Adenovirus F 40/41, stool Not Detected (NotDetected); Campylobacter Not Detected (NotDetected); Clostridium Difficile A/B, PCR Not Detected (NotDetected); Cryptosporidium Not Detected (NotDetected); Cyclospora Cayetanesis Not Detected (NotDetected); Entamoeba histolytica Not Detected (NotDetected); Enteroaggregative E coli Not Detected (NotDetected); Enteropathogenic E coli Not Detected (NotDetected); Enterotoxigenic E coli Not Detected (NotDetected); Giardia lamblia Not Detected (NotDetected); Microscopic, Urine URINE MICROSCOPIC (MICROSCOPIC); Norovirus Not Detected (NotDetected); Plesimonas Shigalloides, PCR Not Detected (NotDetected); Salmonella, PCR Not Detected (NotDetected); Sapovirus Not Detected (NotDetected); Shiga-like toxin E coli Not Detected (NotDetected); Shigella Enterovasive E coli Not Detected (NotDetected); Vibrio Cholerae Not Detected (NotDetected); Vibrio, PCR Not Detected (NotDetected); Yersinia Entercolitica, PCR Not Detected (NotDetected)
[2021-04-08 15:48] LABS: Appearance,Urine CLEAR (Clear); Bilirubin,Urine Negative (Negative); Blood, Urine 1+ (Negative); Color,Urine YELLOW (Yellow); Glucose,Urine (UA) Negative (Negative); Ketones,Urine Negative (Negative); Leukocyte Esterase,Urine 1+ (Negative); Nitrate,Urine POSITIVE (Negative); Protein,Urine 1+ (Negative); Specific Gravity, Urine >= 1.030 (1.005-1.030); Urobilinogen,Urine 0.2 EU/dl (0.2)
[2021-04-08 16:05] LABS: Amorphous Sediment,Urine 1+ /lpf; Bacteria,Urine 2+ /lpf
[2021-04-08 19:06] LABS: Astrovirus Detected (NotDetected); Rotavirus A Detected (NotDetected)
[2021-04-09] VITALS: BP 131/67; PULSE 89; RESP 18; TEMP 36.9; O2SAT 96
[2021-04-09 04:00] VITALS: BP 142/67; PULSE 76; RESP 18; TEMP 36.9; O2SAT 98
[2021-04-09 05:06] VITALS: BMI 26.4
[2021-04-09 07:46] VITALS: BP 153/59; PULSE 75; RESP 20; TEMP 36.8; O2SAT 95
[2021-04-09 07:58] LABS: Anion Gap 14.5 mEq/L (5-15); Blood Urea Nitrogen 40 mg/dl (7-17); Carbon Dioxide 17 mmol/L (22.0-30.0); Chloride 112 mmol/L (98-107); Creatinine Clearance Estimated 49 mL/min (50-200); Estimated Glomerular Filt Rate 60 ml/min (>60); GFR (African American) 73 ML/MIN (>60); Glucose 114 mg/dl (74-100); Potassium 3.5 mmoL/L (3.5-5.1); Sodium 140 mmol/L (136-145)
--- NOTE | 2021-04-09 07:59 | HMH.HP ---
*Admission Date: 04/08/21 *Chief complaint: vomiting *History of present illness: this elderly patient presented to the ed - This is a 80-year-old female presented to the emergency department with some nausea vomiting and diarrhea. Patient's had the symptoms for the last week or so. She was seen here previously, however elected for outpatient treatment. She states that she just is not getting any better. She is having difficulty keeping anything down secondary to the nausea and vomiting. She said some clear vomiting. Denies any hematemesis. She has a history of an ostomy secondary to diverticulitis in the past. She is had some very loose output in her ostomy bags. She is not having associated abdominal discomfort. She denies any fevers or chills. She has felt slightly lightheaded and having some generalized weakness. Denies any headache or change in vision. No focal weakness. No chest pain or shortness of breath. pt had been seen in the ed 04/06/21 but declined admit and has continued to have sx and dec po intake -pt was admitted for ivf and treatment [facility] History I have reviewed the patient's past medical history: Yes Medical History: Reports:: Hypertension Denies:: Cancer, Diabetes Mellitus Type 1, Diabetes Mellitus Type 2, Internal Pacemaker, Lung Disease, MRSA, Seizures *Have you ever received a pneumonia vaccine?: Yes *Have you received a flu vaccine this season?: Yes Other Medical History: Reports: Arthritis, Other. Denies: Blood Transfusion Reaction Laterality Cases: Right: Arthroscopy Shoulder, Bilateral: Tonsillectomy, Other Other Surgeries: Yes: Cholecystectomy, Other. No: Pacemaker Amputation: No Fractures: No - *Social History Last grade of school completed: High school graduate Smoking Status: Never smoker Alcohol Intake: never Alcohol Intake Frequency:: other Substance Use Type: other *Occupational Status:: retired Housing: house Household Members: spouse *Travel in the last 8 weeks: None Family Hx:: No significant family history Review of Systems - Review of Systems Review of systems:: pertinent systems reviewed and negative unless documented below - Constitutional Reports weakness, Denies fever(s) - Eyes Denies change in vision - ENT Denies sore throat - *Cardiovascular Denies chest pain - *Respiratory Denies cough - *Gastrointestinal Reports loose stools, Reports nausea, Reports vomiting, Denies abdominal pain, Denies black, tarry stools - *Genitourinary Denies blood in urine - *Musculoskeletal Denies joint pain - Integumentary/Breasts Denies rash - *Neurologic Reports weakness, Denies localized weakness, Denies headache(s), Denies tingling/numbness/burning sensations Meds Home Medications Medication Instructions Recorded Confirmed Type Docusate Sodium [Dulcolax Stool 100 mg PO DAILY 04/08/21 04/08/21 History Softener] Metoclopramide HCl [Metoclopramide 5 mg PO ACHS 04/08/21 04/08/21 History 5mg Tab] Naproxen [Naproxen 500mg tab] 500 mg PO BID 04/08/21 04/08/21 History Pantoprazole Sodium 40 mg PO DAILY 04/08/21 04/08/21 History Triamterene/Hydrochlorothiazid 1 each PO DAILY 04/08/21 04/08/21 History [Maxzide 37.5 mg-25 mg Tablet] Venlafaxine HCl [Venlafaxine HCl 75 mg PO DAILY 04/08/21 04/08/21 History ER] predniSONE [Prednisone 1mg 4 mg PO DAILY 04/08/21 04/08/21 History Tab] Allergies Allergy/AdvReac Type Severity Reaction Status Date / Time adhesive Allergy UNKNOWN Verified 07/15/18 08:36 codeine [CODEINE] AdvReac Mild NA-NAUSEA Verified 07/15/18 08:36 Exam Vital signs and Labs for Last 24 Hours: Temp Pulse Resp BP Pulse Ox 98.3 F 75 20 153/59 H 95 04/09/21 07:46 04/09/21 07:46 04/09/21 07:46 04/09/21 07:46 04/09/21 07:46 Laboratory Results - last 24 hr 04/08/21 10:15: Sodium 137, Potassium 3.5 D, Chloride 99, Carbon Dioxide 18 L, Anion Gap 23.5 H, BUN 53 H D, Creatinine 1.50 H, Estimated Creat Clear 3
[2021-04-09 08:03] LABS: Basophils # 0.1 K/mm3 (0-0.2); Basophils % 0.5 % (0.1-2.0); Eosinophils % 0.2 % (0.1-12.0); Hematocrit 37.5 % (37.0-47.0); Lymphocytes # 2.3 K/mm3 (0.7-4.5); Mean Corpuscular HGB Conc 33.4 g/dL (31.8-35.4); Mean Corpuscular Hemoglobin 28.2 pg (27.0-31.2); Mean Corpuscular Volume 84.3 fl (81-99); Mean Platelet Volume 10.4 fl (7.4-10.4); Monocytes # 1.3 K/mm3 (0.1-1.0); Neutrophils # 9.7 K/mm3 (1.8-7.8); Neutrophils % 72.3 % (37.0-80.0); Platelet Count 253 K/mm3 (142-424); Red Blood Count 4.45 M/mm3 (4.20-5.40); Red Cell Distribution Width 15.1 % (11.5-17.5); White Blood Count 13.4 K/mm3 (4.8-10.8)
[2021-04-09 08:08] LABS: Acetone, Serum (Rapid) None Detected (None Detect)
[2021-04-09 09:16] LABS: Hemoglobin 12.5 g/dL (12.2-16.2)
[2021-04-09 11:37] VITALS: BP 155/75; PULSE 72; RESP 16; TEMP 37.1; O2SAT 96
--- NOTE | 2021-04-09 12:52 | PC.NURSE ---
PT ATE 75% OF HER LUNCH TRAY W/O NAUSEA OR VOMITING. PT STATED SHE FELT LIKE SHE WAS OKAY TO BE DISCHARGED. NOTIFIED Koffi OCHOA. PT STATED SHE HAD ZOFRAN AT HOME IF SHE NEEDED IT. PT'S COLOSTOMY HAS BEEN EMPTIED 2X THIS SHIFT. PT HAS BEEN AMBULATING TO THE BATHROOM.
--- NOTE | 2021-04-09 13:52 | HMH.DCSUM ---
General - General Admission date:: 04/08/21 Discharge date: 04/09/21 HPI HPI: this elderly patient presented to the ed - This is a 80-year-old female presented to the emergency department with some nausea vomiting and diarrhea. Patient's had the symptoms for the last week or so. She was seen here previously, however elected for outpatient treatment. She states that she just is not getting any better. She is having difficulty keeping anything down secondary to the nausea and vomiting. She said some clear vomiting. Denies any hematemesis. She has a history of an ostomy secondary to diverticulitis in the past. She is had some very loose output in her ostomy bags. She is not having associated abdominal discomfort. She denies any fevers or chills. She has felt slightly lightheaded and having some generalized weakness. Denies any headache or change in vision. No focal weakness. No chest pain or shortness of breath. pt had been seen in the ed 04/06/21 but declined admit and has continued to have sx and dec po intake -pt was admitted for ivf and treatment Hospital Course Hospital Course: Abnormal Lab Results 04/08/21 15:31: Ur Leukocyte Esterase 1+ A 04/08/21 15:31: Stool Rotavirus (PCR) Detected A, Stool Astrovirus (PCR) Detected A 04/09/21 06:50: WBC 13.4 H, Pepin % (Auto) 10.0 H, Neut # (Auto) 9.7 H, Pepin # (Auto) 1.3 H 04/09/21 06:50: Chloride 112 H, Carbon Dioxide 17 L, BUN 40 H, Glucose 114 H D, Calcium 8.0 L Microbiology 04/08/21 15:31 Urine,Clean Catch Urine Culture - Preliminary Discharge plan: Uti- culture pending pt was able to eat and drink and keep it down and is requesting to dc home will dc home and hold on antibiotics until culture results are back. Objective Vital signs: Temp Pulse Resp BP Pulse Ox 98.8 F 72 16 155/75 H 96 04/09/21 11:37 04/09/21 11:37 04/09/21 11:37 04/09/21 11:37 04/09/21 11:37 no acute distress - *Routine HEENT Exam Head: Present: normocephalic Eye: Present: EOMI, PERRL ENT: Present: mucous membranes moist - *Routine Neck Exam Present: supple - *Routine Respiratory Exam Present: CTA bilaterally - *Routine Cardiovascular Exam Present: RRR - *Routine Abdominal Exam Present: soft, normoactive bowel sounds. Absent: tenderness - *Routine Extremities Exam Absent: cyanosis, clubbing, edema - *Routine Skin Exam Present: warm. Absent: rash Results Labs on day of discharge: Labs from last 24 hours 04/09/21 04/09/21 04/09/21 06:50 06:50 06:50 WBC 13.4 H RBC 4.45 Hgb 12.5 D Hct 37.5 MCV 84.3 MCH 28.2 MCHC 33.4 RDW 15.1 Plt Count 253 D MPV 10.4 Neut % (Auto) 72.3 Lymph % (Auto) 17.0 Pepin % (Auto) 10.0 H Eos % (Auto) 0.2 Baso % (Auto) 0.5 Neut # (Auto) 9.7 H Lymph # (Auto) 2.3 Pepin # (Auto) 1.3 H Eos # (Auto) 0.0 Baso # (Auto) 0.1 Sodium 140 Potassium 3.5 Chloride 112 H Carbon Dioxide 17 L Anion Gap 14.5 BUN 40 H Creatinine 0.90 D Estimated Creat Clear 49 Estimated GFR 60 Est GFR ( Amer) 73 D Glucose 114 H D Calcium 8.0 L Urine Color Urine Appearance Urine pH Ur Specific [place] Urine Protein Urine Glucose (UA) Urine Ketones Urine Blood Urine Nitrate Urine Bilirubin Urine Urobilinogen Ur Leukocyte Esterase Urine RBC Urine WBC Ur Squamous Epith Cells Amorphous Sediment Urine Bacteria Stl Aeromonas (PCR) Stl C. cayetanensis PCR Stool Rotavirus (PCR) Stl Adenov F 40/41 PCR Stool Astrovirus (PCR) Stool Campylobacter PCR Stl C.difficile Tox PCR Stool Cryptosporidium PCR Stl E.coli Shiga Tox PCR Stool E coli O157 PCR Stl Enterotoxigenic E PCR Stool EPEC (PCR) Stool EAEC (PCR) Stl E. histolytica PCR Stool Giardia Lamblia PCR Stool Salmonella PCR Stool Sapovirus (PCR) Stl P. shigelloides PCR
--- NOTE | 2021-04-13 11:27 | CARE MANAGER ---
I have been unable to talk to patient following hospital stay, called daughter Luz Marina Dickey and she states her Mom is well and she had concerns at this time.
== END 2021-04-09 14:30 | disposition home or self-care (01) ==
LOC: ER 12:18 → 2ND 12:30
PROVIDERS: Admitting Provider Emergency Medicine; Emergency Provider Emergency Medicine; PCP Internal Medicine; Visit Provider Emergency Medicine
DX: N17.9 Acute kidney failure, unspecified (principal); I10 Essential (primary) hypertension; K52.9 Noninfective gastroenteritis and colitis, unspecified; A08.0 Rotaviral enteritis; A08.32 Astrovirus enteritis; E87.2 Acidosis; Z79.899 Other long term (current) drug therapy; Z93.3 Colostomy status; Z20.822 Contact with and (suspected) exposure to COVID-19
CPT/HCPCS: G0378; 80048; 80053; 81001; 82009; 82803; 83605; 83690; 85025; 87086; 87088; 87186; 87507; 96365; 96375; 96376; 99285; C9803; J0696; J2405; U0003; U0005

== ENCOUNTER → 2021-06-28 09:46 | Outpatient (CLI) | payer MEDICARE, OTHER, SELFPAY ==
--- NOTE | 2021-06-28 09:53 | MM_ITS ---
PROCEDURE INFORMATION: Exam: MG Bilateral Screening 3D Mammography Exam date and time: 06/28/2021 9:57 AM Age: 81 years old Clinical indication: Screening examination. No family history of breast cancer. TECHNIQUE: Imaging protocol: Bilateral Screening tomosynthesis and 2D mammography including computer-aided detection (CAD) when performed. Limited positioning related to mobility impairment. COMPARISON: 1. MG MM DIG SCREENING MAMM BI W/CAD 06/25/2020 10:31 AM 2. MG MM DIG SCREENING MAMM BI W/CAD 07/01/2019 9:34 AM 3. MG DIG MAMM-SCREEN EDER 06/27/2018 8:28 AM 4. MG SCBI MM Dig screening mamm BI w/CAD 02/27/2017 4:27 PM FINDINGS: MAMMOGRAPHY: Breast composition: There are scattered areas of fibroglandular density. Mass: No suspicious mass. Architectural distortion: None. Calcifications: No suspicious calcifications. Asymmetric density: No developing asymmetry. Skin thickening: None. Axillary adenopathy: None. IMPRESSION: No mammographic evidence of malignancy. Annual screening is recommended unless otherwise clinically indicated. ASSESSMENT: BI-RADS Category 1: Negative
== END ==
PROVIDERS: PCP Internal Medicine; Visit Provider Internal Medicine
DX: Z12.31 Encounter for screening mammogram for malignant neoplasm of breast (principal)
CPT/HCPCS: 77063; 77067

== ENCOUNTER → 2021-07-01 12:12 | Outpatient (CLI) | payer MEDICARE, OTHER, SELFPAY ==
[2021-07-01 13:04] LABS: Basophils # 0.1 K/mm3 (0-0.2); Basophils % 0.5 % (0.1-2.0); Eosinophils # 0.1 K/mm3 (0.0-0.4); Eosinophils % 1.2 % (0.1-12.0); Hematocrit 39.9 % (37.0-47.0); Hemoglobin 13.1 g/dL (12.2-16.2); Lymphocytes # 3.2 K/mm3 (0.7-4.5); Lymphocytes % 31.9 % (10-50); Mean Corpuscular HGB Conc 32.8 g/dL (31.8-35.4); Mean Corpuscular Hemoglobin 27.8 pg (27.0-31.2); Mean Corpuscular Volume 84.7 fl (81-99); Mean Platelet Volume 8.5 fl (7.4-10.4); Monocytes # 0.7 K/mm3 (0.1-1.0); Monocytes % 6.6 % (1.7-9.3); Neutrophils # 6.1 K/mm3 (1.8-7.8); Neutrophils % 59.8 % (37.0-80.0); Platelet Count 273 K/mm3 (142-424); Red Blood Count 4.71 M/mm3 (4.20-5.40); Red Cell Distribution Width 13.6 % (11.5-17.5); White Blood Count 10.1 K/mm3 (4.8-10.8)
[2021-07-01 13:41] LABS: Erythrocyte Sedimentation Rate 79 mm/hr (0-30)
[2021-07-01 13:45] LABS: Albumin Level 4.2 g/dl (3.5-5.0); Albumin/Globulin Ratio 1.4 (1.1-1.8); Calcium 9.5 mg/dl (8.4-10.2); Globulin 3.1 g/dL (1.3-3.2); Glucose 89 mg/dl (74-100); HDL Cholesterol 54 mg/dl (40-60); Total Protein,Serum 7.3 g/dl (6.3-8.2)
[2021-07-01 13:58] LABS: Direct LDL Cholesterol 99.75 mg/dL (100-129)
[2021-07-01 14:06] LABS: Anion Gap 14.1 mEq/L (5-15); Aspartate Amino Transferase 29 U/L (14-36); Bilirubin,Total 0.5 mg/dl (0.2-1.3); Blood Urea Nitrogen 16 mg/dl (7-17); Carbon Dioxide 26 mmol/L (22.0-30.0); Chloride 104 mmol/L (98-107); Estimated Glomerular Filt Rate 69 ml/min (>60); GFR (African American) 84 ML/MIN (>60); Potassium 4.1 mmoL/L (3.5-5.1); Sodium 140 mmol/L (136-145)
[2021-07-01 14:07] LABS: Alanine Aminotransferase 22 U/L (12-78); Alkaline Phosphatase 94 U/L (38-126); Chol/HDL Ratio 3.9 (1-3.5); Cholesterol 212 mg/dl (140-200); Triglycerides 255 mg/dl (30-150); VLDL Cholesterol 51 mg/dL (0-40)
== END ==
PROVIDERS: PCP Internal Medicine; Visit Provider Internal Medicine
DX: I10 Essential (primary) hypertension (principal); E78.5 Hyperlipidemia, unspecified; D64.9 Anemia, unspecified; M15.0 Primary generalized (osteo)arthritis; M35.3 Polymyalgia rheumatica
CPT/HCPCS: 80053; 80061; 85025; 85651

== ENCOUNTER → 2021-12-06 10:10 | Outpatient (POV) | payer MEDICARE, OTHER, SELFPAY | PROVIDERS: Visit Provider Dermatology | DX: Z00.00 Encounter for general adult medical examination without abnormal findings (principal) ==

== ENCOUNTER → 2022-01-04 09:47 | Outpatient (CLI) | payer MEDICARE, OTHER, SELFPAY ==
[2022-01-04 10:37] LABS: Chloride 103 mmol/L (98-107)
[2022-01-04 10:38] LABS: Potassium 3.7 mmoL/L (3.5-5.1); Sodium 139 mmol/L (136-145)
[2022-01-04 10:40] LABS: Alanine Aminotransferase 22 U/L (12-78); Albumin/Globulin Ratio 1.4 (1.1-1.8); Alkaline Phosphatase 98 U/L (38-126); Anion Gap 11.7 mEq/L (5-15); Aspartate Amino Transferase 28 U/L (14-36); Bilirubin,Total 0.3 mg/dl (0.2-1.3); Blood Urea Nitrogen 23 mg/dl (7-17); Carbon Dioxide 28 mmol/L (22.0-30.0); Cholesterol 231 mg/dl (140-200); Estimated Glomerular Filt Rate 53 ml/min (>60); GFR (African American) 65 ML/MIN (>60); Globulin 2.9 g/dL (1.3-3.2); Total Protein,Serum 6.9 g/dl (6.3-8.2); Triglycerides 194 mg/dl (30-150); VLDL Cholesterol 39 mg/dL (0-40)
[2022-01-04 10:41] LABS: Calcium 9.1 mg/dl (8.4-10.2); Glucose 102 mg/dl (74-100); HDL Cholesterol 58 mg/dl (40-60)
[2022-01-04 10:52] LABS: Direct LDL Cholesterol 105.03 mg/dL (100-129)
[2022-01-04 13:00] LABS: Erythrocyte Sedimentation Rate 36 mm/hr (0-30)
== END ==
PROVIDERS: PCP Internal Medicine; Visit Provider Internal Medicine
DX: I10 Essential (primary) hypertension (principal); M47.812 Spondylosis without myelopathy or radiculopathy, cervical region; M15.0 Primary generalized (osteo)arthritis; M35.3 Polymyalgia rheumatica; E78.5 Hyperlipidemia, unspecified; K21.9 Gastro-esophageal reflux disease without esophagitis; N95.1 Menopausal and female climacteric states
CPT/HCPCS: 80053; 80061; 85651

== ENCOUNTER → 2022-06-29 10:21 | Outpatient (CLI) | payer MEDICARE, OTHER, SELFPAY ==
--- NOTE | 2022-06-29 10:25 | MM_ITS ---
PROCEDURE INFORMATION: Exam: MG Bilateral Screening 3D Mammography Exam date and time: 06/29/2022 10:20 AM Age: 82 years old Clinical indication: Screening mammogram TECHNIQUE: Imaging protocol: Bilateral Screening tomosynthesis and 2D mammography including computer-aided detection (CAD) when performed. Limited assessment due to difficulty positioning the patient. The COMPARISON: 1. MG MM DIG SCREENING MAMM BI W/CAD 06/28/2021 9:57 AM 2. MG MM DIG SCREENING MAMM BI W/CAD 06/25/2020 10:31 AM 3. MG MM DIG SCREENING MAMM BI W/CAD 07/01/2019 9:34 AM 4. MG DIG MAMM-SCREEN EDER 06/27/2018 8:28 AM FINDINGS: MAMMOGRAPHY: Breast composition: There are scattered areas of fibroglandular density. Mass: Stable benign-appearing subcentimeter nodules are present in the bilateral breast. No new or morphologically suspicious nodule has developed to suggest malignancy. Architectural distortion: No new or suspicious architectural distortion. Calcifications: No new or suspicious calcifications are present Asymmetric density: No new or suspicious asymmetric density is present Skin thickening: None. Axillary adenopathy: None. IMPRESSION: No mammographic evidence of malignancy. Recommend annual screening mammography unless otherwise clinically indicated. ASSESSMENT: BI-RADS category 2: Benign
== END ==
PROVIDERS: PCP Internal Medicine; Visit Provider Internal Medicine
DX: Z12.31 Encounter for screening mammogram for malignant neoplasm of breast (principal)
CPT/HCPCS: 77063; 77067

== ENCOUNTER → 2022-07-05 11:55 | Outpatient (CLI) | payer MEDICARE, OTHER, SELFPAY ==
[2022-07-05 12:14] LABS: Basophils % 0.4 % (0.1-2.0); Eosinophils # 0.1 K/mm3 (0.0-0.4); Eosinophils % 0.9 % (0.1-12.0); Hematocrit 38.8 % (37.0-47.0); Hemoglobin 12.4 g/dL (12.2-16.2); Lymphocytes # 3.2 K/mm3 (0.7-4.5); Lymphocytes % 31.4 % (10-50); Mean Corpuscular HGB Conc 31.9 g/dL (31.8-35.4); Mean Corpuscular Hemoglobin 27.2 pg (27.0-31.2); Mean Corpuscular Volume 85.3 fl (81-99); Mean Platelet Volume 9.2 fl (7.4-10.4); Monocytes # 0.8 K/mm3 (0.1-1.0); Monocytes % 7.8 % (1.7-9.3); Neutrophils # 6.1 K/mm3 (1.8-7.8); Neutrophils % 59.5 % (37.0-80.0); Platelet Count 239 K/mm3 (142-424); Red Blood Count 4.55 M/mm3 (4.20-5.40); Red Cell Distribution Width 14.6 % (11.5-17.5); White Blood Count 10.2 K/mm3 (4.8-10.8)
[2022-07-05 12:36] LABS: Erythrocyte Sedimentation Rate 28 mm/hr (0-30)
[2022-07-05 12:40] LABS: Alanine Aminotransferase 22 U/L (12-78); Albumin Level 3.9 g/dl (3.5-5.0); Albumin/Globulin Ratio 1.3 (1.1-1.8); Alkaline Phosphatase 97 U/L (38-126); Anion Gap 16.3 mEq/L (5-15); Aspartate Amino Transferase 30 U/L (14-36); Bilirubin,Total 0.5 mg/dl (0.2-1.3); Blood Urea Nitrogen 18 mg/dl (7-17); Calcium 8.7 mg/dl (8.4-10.2); Carbon Dioxide 29 mmol/L (22.0-30.0); Chloride 101 mmol/L (98-107); Chol/HDL Ratio 3.6 (1-3.5); Cholesterol 206 mg/dl (140-200); Estimated Glomerular Filt Rate 60 ml/min (>60); GFR (African American) 73 ML/MIN (>60); Globulin 2.9 g/dL (1.3-3.2); Glucose 107 mg/dl (74-100); HDL Cholesterol 58 mg/dl (40-60); Potassium 4.3 mmoL/L (3.5-5.1); Sodium 142 mmol/L (136-145); Total Protein,Serum 6.8 g/dl (6.3-8.2); Triglycerides 251 mg/dl (30-150); VLDL Cholesterol 50 mg/dL (0-40)
[2022-07-05 12:50] LABS: Direct LDL Cholesterol 92.97 mg/dL (100-129)
== END ==
PROVIDERS: PCP Internal Medicine; Visit Provider Internal Medicine
DX: I10 Essential (primary) hypertension (principal); E78.5 Hyperlipidemia, unspecified; D64.9 Anemia, unspecified; M35.3 Polymyalgia rheumatica; M47.812 Spondylosis without myelopathy or radiculopathy, cervical region
CPT/HCPCS: 80053; 80061; 85025; 85651

== ENCOUNTER → 2023-01-05 10:40 | Outpatient (CLI) | payer MEDICARE, OTHER, SELFPAY ==
[2023-01-05 11:44] LABS: Basophils % 0.3 % (0.1-2.0); Eosinophils # 0.1 K/mm3 (0.0-0.4); Eosinophils % 0.9 % (0.1-12.0); Hemoglobin 13.5 g/dL (12.2-16.2); Lymphocytes # 2.9 K/mm3 (0.7-4.5); Lymphocytes % 27.1 % (10-50); Mean Corpuscular HGB Conc 35.5 g/dL (31.8-35.4); Mean Corpuscular Hemoglobin 30.6 pg (27.0-31.2); Mean Platelet Volume 8.7 fl (7.4-10.4); Monocytes # 0.9 K/mm3 (0.1-1.0); Monocytes % 8.2 % (1.7-9.3); Neutrophils # 6.8 K/mm3 (1.8-7.8); Neutrophils % 63.5 % (37.0-80.0); Platelet Count 241 K/mm3 (142-424); Red Blood Count 4.42 M/mm3 (4.20-5.40); Red Cell Distribution Width 14.3 % (11.5-17.5); White Blood Count 10.7 K/mm3 (4.8-10.8)
[2023-01-05 12:09] LABS: Alanine Aminotransferase 22 U/L (12-78); Albumin Level 4.2 g/dl (3.5-5.0); Albumin/Globulin Ratio 1.3 (1.1-1.8); Alkaline Phosphatase 97 U/L (38-126); Anion Gap 15.5 mEq/L (5-15); Aspartate Amino Transferase 30 U/L (14-36); Bilirubin,Total 0.7 mg/dl (0.2-1.3); Blood Urea Nitrogen 21 mg/dl (7-17); Carbon Dioxide 27 mmol/L (22.0-30.0); Chloride 98 mmol/L (98-107); Chol/HDL Ratio 4.2 (1-3.5); Cholesterol 230 mg/dl (140-200); Estimated Glomerular Filt Rate 53 ml/min (>60); GFR (African American) 64 ML/MIN (>60); Globulin 3.3 g/dL (1.3-3.2); Glucose 122 mg/dl (74-100); HDL Cholesterol 55 mg/dl (40-60); Potassium 4.5 mmoL/L (3.5-5.1); Sodium 136 mmol/L (136-145); Total Protein,Serum 7.5 g/dl (6.3-8.2); Triglycerides 235 mg/dl (30-150); VLDL Cholesterol 47 mg/dL (0-40)
[2023-01-05 12:16] LABS: Erythrocyte Sedimentation Rate 22 mm/hr (0-30)
[2023-01-05 12:20] LABS: Direct LDL Cholesterol 117.05 mg/dL (100-129)
== END ==
PROVIDERS: PCP Internal Medicine; Visit Provider Internal Medicine
DX: I10 Essential (primary) hypertension (principal); E78.5 Hyperlipidemia, unspecified; K21.9 Gastro-esophageal reflux disease without esophagitis; M35.3 Polymyalgia rheumatica; M15.0 Primary generalized (osteo)arthritis; M47.812 Spondylosis without myelopathy or radiculopathy, cervical region
CPT/HCPCS: 80053; 80061; 85025; 85651

== ENCOUNTER 2023-07-03 10:17 | Outpatient (CLI) | payer MEDICARE, OTHER, SELFPAY ==
--- NOTE | 2023-07-03 10:21 | MM_ITS ---
PROCEDURE INFORMATION: Exam: MG Bilateral Screening 3D Mammography Exam date and time: 07/03/2023 10:10 AM Age: 83 years old Clinical indication: Screening. No family history of breast cancer. TECHNIQUE: Imaging protocol: Bilateral Screening tomosynthesis and 2D mammography including computer-aided detection (CAD) when performed. COMPARISON: 1. MG MM DIG SCREENING MAMM BI W/CAD 06/29/2022 10:20 AM 2. MG MM DIG SCREENING MAMM BI W/CAD 06/28/2021 9:57 AM 3. MG MM DIG SCREENING MAMM BI W/CAD 06/25/2020 10:31 AM 4. MG MM DIG SCREENING MAMM BI W/CAD 07/01/2019 9:34 AM FINDINGS: MAMMOGRAPHY: Breast composition: There are scattered areas of fibroglandular density. Mass: No suspicious mass. Architectural distortion: None. Calcifications: No suspicious calcifications. Asymmetric density: None. Skin thickening: None. Axillary adenopathy: None. IMPRESSION: No mammographic evidence of malignancy. Annual screening is recommended unless otherwise clinically indicated. ASSESSMENT: BI-RADS Category 1: Negative
== END 2023-07-03 23:59 | disposition home or self-care (01) ==
LOC: RAD 10:17
PROVIDERS: PCP Internal Medicine; Visit Provider Internal Medicine
DX: Z12.31 Encounter for screening mammogram for malignant neoplasm of breast (principal)
CPT/HCPCS: 77063; 77067

== ENCOUNTER 2023-07-09 10:44 | Outpatient (CLI) | payer MEDICARE, OTHER, SELFPAY ==
[2023-07-09 10:42] LABS: Basophils # 0.1 K/mm3 (0-0.2); Basophils % 0.6 % (0.1-2.0); Eosinophils # 0.1 K/mm3 (0.0-0.4); Eosinophils % 1.1 % (0.1-12.0); Hematocrit 42.5 % (37.0-47.0); Lymphocytes # 3.1 K/mm3 (0.7-4.5); Lymphocytes % 31.6 % (10-50); Mean Corpuscular HGB Conc 32.9 g/dL (31.8-35.4); Mean Corpuscular Hemoglobin 29.4 pg (27.0-31.2); Mean Corpuscular Volume 89.2 fl (81-99); Mean Platelet Volume 8.6 fl (7.4-10.4); Monocytes # 0.7 K/mm3 (0.1-1.0); Monocytes % 7.1 % (1.7-9.3); Neutrophils # 5.8 K/mm3 (1.8-7.8); Neutrophils % 59.6 % (37.0-80.0); Platelet Count 247 K/mm3 (142-424); Red Blood Count 4.77 M/mm3 (4.20-5.40); Red Cell Distribution Width 14.5 % (11.5-17.5); White Blood Count 9.7 K/mm3 (4.8-10.8)
[2023-07-09 11:27] LABS: Chloride 105 mmol/L (98-107); Sodium 139 mmol/L (136-145)
[2023-07-09 11:28] LABS: Potassium 4.4 mmoL/L (3.5-5.1)
[2023-07-09 11:30] LABS: Alanine Aminotransferase 26 U/L (12-78); Albumin Level 4.2 g/dl (3.5-5.0); Albumin/Globulin Ratio 1.3 (1.1-1.8); Alkaline Phosphatase 96 U/L (38-126); Anion Gap 13.4 mEq/L (5-15); Aspartate Amino Transferase 33 U/L (14-36); Bilirubin,Total 0.6 mg/dl (0.2-1.3); Blood Urea Nitrogen 22 mg/dl (7-17); Carbon Dioxide 25 mmol/L (22.0-30.0); Estimated Glomerular Filt Rate 53 ml/min (>60); GFR (African American) 64 ML/MIN (>60); Globulin 3.3 g/dL (1.3-3.2); Total Protein,Serum 7.5 g/dl (6.3-8.2)
[2023-07-09 11:31] LABS: Calcium 9.8 mg/dl (8.4-10.2); Chol/HDL Ratio 3.6 (1-3.5); Cholesterol 229 mg/dl (140-200); Glucose 126 mg/dl (74-100); HDL Cholesterol 63 mg/dl (40-60); Triglycerides 296 mg/dl (30-150); VLDL Cholesterol 59 mg/dL (0-40)
[2023-07-09 11:42] LABS: Direct LDL Cholesterol 107.31 mg/dL (100-129)
[2023-07-09 12:32] LABS: Erythrocyte Sedimentation Rate 52 mm/hr (0-30)
== END 2023-07-09 23:59 | disposition home or self-care (01) ==
LOC: LAB.DROPOF 10:44
PROVIDERS: PCP Internal Medicine; Visit Provider Internal Medicine
DX: E78.5 Hyperlipidemia, unspecified (principal); K57.92 Diverticulitis of intestine, part unspecified, without perforation or abscess without bleeding; M35.3 Polymyalgia rheumatica; I10 Essential (primary) hypertension
CPT/HCPCS: 80053; 80061; 85025; 85651

== ENCOUNTER 2024-01-08 16:32 | Outpatient (CLI) | payer MEDICARE, OTHER, SELFPAY ==
[2024-01-08 14:05] LABS: Alanine Aminotransferase 30 U/L (12-78); Albumin Level 4.4 g/dl (3.5-5.0); Albumin/Globulin Ratio 1.4 (1.1-1.8); Alkaline Phosphatase 90 U/L (38-126); Anion Gap 12.3 mEq/L (5-15); Aspartate Amino Transferase 35 U/L (14-36); Bilirubin,Total 0.8 mg/dl (0.2-1.3); Blood Urea Nitrogen 22 mg/dl (7-17); Calcium 9.4 mg/dl (8.4-10.2); Carbon Dioxide 28 mmol/L (22.0-30.0); Chloride 105 mmol/L (98-107); Cholesterol 226 mg/dl (140-200); Estimated Glomerular Filt Rate 60 ml/min (>60); GFR (African American) 73 ML/MIN (>60); Globulin 3.2 g/dL (1.3-3.2); Glucose 115 mg/dl (74-100); HDL Cholesterol 56 mg/dl (40-60); Potassium 4.3 mmoL/L (3.5-5.1); Sodium 141 mmol/L (136-145); Total Protein,Serum 7.6 g/dl (6.3-8.2); Triglycerides 306 mg/dl (30-150); VLDL Cholesterol 61 mg/dL (0-40)
[2024-01-08 14:16] LABS: Direct LDL Cholesterol 112.27 mg/dL (100-129)
== END 2024-01-08 23:59 | disposition home or self-care (01) ==
LOC: LAB.DROPOF 16:33
PROVIDERS: PCP Internal Medicine; Visit Provider Internal Medicine
DX: E78.5 Hyperlipidemia, unspecified (principal); I10 Essential (primary) hypertension
CPT/HCPCS: 80053; 80061

== ENCOUNTER 2024-07-04 13:04 | Outpatient (CLI) | payer MEDICARE, OTHER, SELFPAY ==
--- NOTE | 2024-07-04 13:30 | MM_ITS ---
PROCEDURE INFORMATION: Exam: MG Bilateral Screening 3D Mammography Exam date and time: 07/04/2024 1:30 PM Age: 84 years old Clinical indication: Screening examination TECHNIQUE: Imaging protocol: Bilateral Screening tomosynthesis and 2D mammography including computer-aided detection (CAD) when performed. COMPARISON: 1. MG MM DIG SCREENING MAMM BI W/CAD 07/03/2023 10:10 AM 2. MG MM DIG SCREENING MAMM BI W/CAD 06/29/2022 10:20 AM FINDINGS: MAMMOGRAPHY: Breast composition: There are scattered areas of fibroglandular density. Mass: No new or suspicious masses. Architectural distortion: None. Calcifications: No suspicious calcifications. Asymmetric density: None. Skin thickening: None. Axillary adenopathy: None. IMPRESSION: No mammographic evidence of malignancy. Annual screening is recommended unless otherwise clinically indicated. ASSESSMENT: BI-RADS Category 1: Negative.
== END 2024-07-04 23:59 | disposition home or self-care (01) ==
LOC: RAD 13:04
PROVIDERS: PCP Internal Medicine; Visit Provider Internal Medicine
DX: Z12.31 Encounter for screening mammogram for malignant neoplasm of breast (principal); R92.323 Mammographic fibroglandular density, bilateral breasts
CPT/HCPCS: 77063; 77067

== ENCOUNTER 2024-07-08 10:00 | Outpatient (CLI) | payer MEDICARE, OTHER, SELFPAY ==
[2024-07-08 13:03] LABS: Basophils # 0.1 K/mm3 (0-0.2); Basophils % 0.6 % (0.1-2.0); Eosinophils # 0.1 Kmm3 (0.0-0.4); Eosinophils % 1.1 % (0.1-12.0); Hematocrit 41.7 % (37.0-47.0); Hemoglobin 13.2 g/dL (12.2-16.2); Immature Granulocytes # 0.12 10^3uL; Immature Granulocytes % 1.2 %; Lymphocytes # 2.9 K/mm3 (0.7-4.5); Mean Corpuscular HGB Conc 31.7 g/dL (31.8-35.4); Mean Corpuscular Volume 88.3 fl (81-99); Mean Platelet Volume 11.5 fl (7.4-10.4); Monocytes # 0.8 K/mm3 (0.1-1.0); Monocytes % 8.5 % (1.7-9.3); Neutrophils # 5.6 K/mm3 (1.8-7.8); Neutrophils % 58.6 % (37.0-80.0); Nucleated Red Blood Cells # 0 10^3/uL; Nucleated Red Blood Cells % 0 %; Platelet Count 249 K/mm3 (142-424); Red Blood Count 4.72 M/mm3 (4.20-5.40); Red Cell Distribution Width 13.9 % (11.5-17.5); Red Cell Distribution Width-SD 44.7 fL; White Blood Count 9.6 K/mm3 (4.8-10.8)
[2024-07-08 13:58] LABS: Alanine Aminotransferase 19 U/L (12-78); Albumin Level 4.1 g/dl (3.5-5.0); Albumin/Globulin Ratio 1.2 (1.1-1.8); Alkaline Phosphatase 85 U/L (38-126); Anion Gap 11.1 mEq/L (5-15); Aspartate Amino Transferase 24 U/L (14-36); Bilirubin,Total 0.8 mg/dl (0.2-1.3); Blood Urea Nitrogen 25 mg/dl (7-17); Calcium 9.1 mg/dl (8.4-10.2); Carbon Dioxide 29 mmol/L (22.0-30.0); Chloride 102 mmol/L (98-107); Chol/HDL Ratio 4.7 (1-3.5); Cholesterol 217 mg/dl (140-200); Estimated Glomerular Filt Rate 60 ml/min (>60); GFR (African American) 72 ML/MIN (>60); Globulin 3.3 g/dL (1.3-3.2); Glucose 139 mg/dl (74-100); HDL Cholesterol 46 mg/dl (40-60); Potassium 5.1 mmoL/L (3.5-5.1); Sodium 137 mmol/L (136-145); Total Protein,Serum 7.4 g/dl (6.3-8.2); Triglycerides 215 mg/dl (30-150); VLDL Cholesterol 43 mg/dL (0-40)
[2024-07-08 14:09] LABS: Direct LDL Cholesterol 112.75 mg/dL (100-129)
[2024-07-08 14:51] LABS: Hemoglobin A1C 7.5 % (4.0-6.0)
== END 2024-07-08 23:59 | disposition home or self-care (01) ==
LOC: LAB.DROPOF 07-09 11:16
PROVIDERS: PCP Internal Medicine; Visit Provider Internal Medicine
DX: E78.5 Hyperlipidemia, unspecified (principal); I10 Essential (primary) hypertension; R73.9 Hyperglycemia, unspecified; Z93.3 Colostomy status
CPT/HCPCS: 80053; 80061; 83036; 85025

== ENCOUNTER 2024-10-15 11:05 | Outpatient (CLI) | payer MEDICARE, OTHER, SELFPAY ==
[2024-10-15 17:25] LABS: Hematocrit 41.9 % (37.0-47.0); Hemoglobin 13.0 g/dL (12.2-16.2); Immature Granulocytes % 1.1 %; Mean Corpuscular HGB Conc 31.0 g/dL (31.8-35.4); Mean Corpuscular Hemoglobin 27.6 pg (27.0-31.2); Mean Corpuscular Volume 89.0 fl (81-99); Nucleated Red Blood Cells % 0 %; Platelet Count 256 K/mm3 (142-424); Red Blood Count 4.71 M/mm3 (4.20-5.40); Red Cell Distribution Width-SD 45.4 fL; White Blood Count 7.9 K/mm3 (4.8-10.8)
[2024-10-15 18:22] LABS: Albumin Level 4.3 g/dl (3.5-5.0); Chloride 106 mmol/L (98-107); Sodium 141 mmol/L (136-145)
[2024-10-15 18:23] LABS: Potassium 5.0 mmoL/L (3.5-5.1)
[2024-10-15 18:25] LABS: Alanine Aminotransferase 14 U/L (12-78); Albumin/Globulin Ratio 1.4 (1.1-1.8); Alkaline Phosphatase 86 U/L (38-126); Anion Gap 14.0 mEq/L (5-15); Aspartate Amino Transferase 26 U/L (14-36); Bilirubin,Total 0.8 mg/dl (0.2-1.3); Blood Urea Nitrogen 24 mg/dl (7-17); Carbon Dioxide 26 mmol/L (22.0-30.0); Cholesterol 198 mg/dl (140-200); Creatinine,Serum 0.90 mg/dl (0.52-1.04); Estimated Glomerular Filt Rate 60 ml/min (>60); GFR (African American) 72 ML/MIN (>60); Globulin 3.0 g/dL (1.3-3.2); Total Protein,Serum 7.3 g/dl (6.3-8.2); Triglycerides 212 mg/dl (30-150)
[2024-10-15 18:26] LABS: Calcium 9.4 mg/dl (8.4-10.2); Glucose 140 mg/dl (74-100); HDL Cholesterol 44 mg/dl (40-60)
[2024-10-15 18:56] LABS: Hemoglobin A1C 7.9 % (4.0-6.0)
--- OUTSIDE RECORDS SUMMARY | 2024-10-17 09:54 | XMS_ITS | Clinical Summary ---
Author Organization Healthcare Address [address] [place] [address] Care Team Providers Care Automobile Body Repair Supervisor Name Role Phone Bello Lion MD Primary Care Provider [phone] Allergies Active Allergy Reactions Criticality Noted Date Comments Codeine Nausea,Unknown - Pat ient states they do not know rxn details Low 05/15/2018 Latex Rash,Hives,Other - p lease document in the comment field,Itching,Unknown - Patient states they do not know rxn details Medium 04/15/2018 Medications acetaminophen (Tylenol) 500 MG tablet TAKE 1 TABLET EVERY 4 TO 6 HOURS NEEDED. 0 Active naproxen (Naprosyn) 500 MG tablet TAKE ONE TABLET BY MOUTH TWICE DAILY NEEDED FOR PAIN AND inflammation --TAKE WITH FOOD-- 2 Active triamterene-hyd roCHLOROthiazid e (Dyazide) 37.5-25 MG capsule Take 1 capsule by mouth 1 (one) time each day. 2 Active DOK 100 MG capsule Take 100 mg by mouth 2 (two) times a day. 2 Active PREDNISONE PO 4mg tablet daily 0 Active Probiotic Product (PROBIOTIC PO) 0 Active venlafaxine XR (Effexor-XR) 75 MG 24 hr capsule Take 75 mg by mouth 1 (one) time each day. 2 Active pantoprazole (Protonix) 40 MG EC tablet Take 40 mg by mouth 1 (one) time each day. 2 Active metoclopramide (Reglan) 5 MG tablet 0 Active Family History Medical History Relation Name Comments Arthritis Other 1 Hypertension Other 2 Lung cancer Other 3 Other cancer Other 4 Conversions - Other Other 5 Parkinso n disease, symptomatic Relation Name Status Comments Other 1 Other 2 Other 3 Other 4 Other 5 Social History Tobacco Use Types Packs/Day Years Used Date Smoking Tobacco: Never Smokeless Tobacco: Never Alcohol Use Standard Drinks/Week Comments No 0 (1 standard drink = 0.6 oz pur e alcohol) PHQ-2 Answer Date Recorded Patient Health Questionnaire-2 Score 0 03/22/2021 Comments Unknown Sex and Gender Information Value Date Recorded Sex Assigned at Not on file Legal Sex Female 8:20 PM EDT Gender Identity Not on file Sexual Orientation Not on file Last Filed Vital Signs Vital Sign Reading Time Taken Comments Blood Pressure 177/78 03/22/2021 1:48 PM EST Pulse 78 03/22/2021 1:48 PM EST Temperature 35.3 C (95.5 F) 03/22/2021 1:48 PM EST Respiratory Rate - - Oxygen Saturation - - Inhaled Oxygen Concentration - - Weight 71.7 kg (158 lb 1.1 oz) 03/22/2021 1:48 P M EST Height 158 cm (5' 2.21 ) 03/22/2021 1:48 PM EST Body Mass Index 28.72 03/22/2021 1:48 PM EST Plan of Treatment Health Maintenance Due Date Last Done Comments [facility]-Bone Density Scan 1940 [facility]-Depression Screening 1940 [facility]-/Child/Adol SDOH Screenings 1940 [facility]- SDOH Screenings 06/14/1959 [facility]-Adult SDOH Screenings 06/14/1959 [facility]-DTaP,Tdap,and Td Vaccines (1 - Tdap) 1960 [facility]-Zoster Vaccines (1 of 2) 06/14/1991 [facility]-RSV Vaccine: 60+ Years or (1 - 1-dose 75+ series) 2016 [facility]-Pneumococcal Vaccine: 50+ Years (2 of 2 - PCV) 01/22/2018 01/22/2017 [id number] Vaccine (4 - 2024- season) 2024 03/01/2021, 04/14/2020, 03/17/2020 [facility]-Influenza Vaccine (#1) 2024 HPV Vaccines Aged Out No longer eligi ble based on patient's age to complete this topic [facility]-HIB Vaccines Aged Out No longer e ligible based on patient's age to complete this topic [facility]-Hepatitis A Vaccines Aged Out No longer eligible based on patient's age to complete this topic [facility]-IPV Vaccines Aged Out No longer e ligible based on patient's age to complete this topic [facility]-Rotavirus Vaccines Aged Out No lo nger eligible based on patient's age to complete this topic Insurance MEDICARE [facility] [place] [id number] Care Teams Automobile Body Repair Supervisor Relationship Specialty Start Date End Date Bello Lion MD [address] [facility] [address] [place] [address] PCP - General 06/18/20
--- OUTSIDE RECORDS SUMMARY | 2024-10-17 09:54 | XMS_ITS ---
Author Organization [facility] Care Team Providers Care Residential Energy Auditor Name Role Phone Briseida Concepcion Unavailable UnavailHALLIE Gudino Unavailable Unavailable Allergies and adverse reactions Code CodeSystem Substance Reaction Severity StartDate Concern Status 2670 RXNORM Codeine Mild 03/26/2019 active Latex Mild 03/26/2019 active Care Team Name Role Address Phone Organization Dates HALLIE LONG PCP [address] [facility] [address], [address], [place] (Office): : [place] 03/26/2019 - 05/09/2019 Briseida Concepcion [address] [place] [facility] [address], [place] (Office): : [place] 03/26/2019 - 05/09/2019 Immunizations Immunization Status Vaccine Details Vaccine Code CodeSystem Date Notes TB 2 Step Mantoux Skin Test completed tuberculin skin test; unspecified formulation lotNumber: [id number] expiry: 04/29/2021 Mfg: Mantoux Tubersol Given 0.1 mg Left Forearm intradermally Step 2 of Multi-step with next step required 98 CVX created date: 04/07/2019 consent date: 04/07/2019 administer ed date: 04/05/2019 Educated by dilia on 04/06/2019 TB 2 Step Mantoux Skin Test completed tuberculin skin test; unspecified formulation lotNumber: [id number] expiry: 04/29/2021 Mfg: Mantoux Given 0.1 mg Left Forearm intradermally Step 1 of Multi-step with next step required 98 CVX created date: 03/26/2019 consent date: 03/26/2019 administer ed date: 03/26/2019 Educated by dilia on 03/26/2019 Mental Status Section Date Assessment Total Score Description 05/09/2019 BIMS 15 cognitively int act CAM 0 No delirium ind icated PHQ-9 00 04/01/2019 BIMS 11 moderate cognit franny impairment CAM 0 No delirium ind icated PHQ-9 01 minimal depress ion Problems Problem # Description Date of onset Resolved Date Code CodeSystem Concern Status 1 COLOSTOMY STATUS [address] active 2 CONSTIPATION, UNSPECIFIED [address] active 3 CUTANEOUS ABSCESS OF ABDOMINAL WALL [address] active 4 DIVERTICULITIS OF INTESTINE, PART UNSPECIFIED, WITHOUT PERFORATION OR ABSCESS WITHOUT BLEEDING [address] active 5 DYSPHAGIA, PHARYNGOESOPHAGEAL PHASE [address] active 6 ESSENTIAL (PRIMARY) HYPERTENSION [address] active 7 GASTRO-ESOPHAGEAL REFLUX DISEASE WITHOUT ESOPHAGITIS [address] active 8 GASTROSTOMY STATUS [address] active 9 INSOMNIA, UNSPECIFIED [address] active 10 MAJOR DEPRESSIVE DISORDER, RECURRENT, UNSPECIFIED [address] active 11 MODERATE PROTEIN-CALORIE MALNUTRITION [address] active 12 MUSCLE WEAKNESS (GENERALIZED) [address] active 13 RETENTION OF URINE, UNSPECIFIED [address] active Reason for Referral No Reasons for Referral Entered Social History Social History Observation Description Start Date End Date Code Code System Current Smoking Status Tobacco smoking consumption unknown 331250483 SNOMED CT Sex Assigned At Female 1940 [address]80-5 [facility] Gender Identity Sexual Orientation Vital Signs Code Code System Vitals Name Values and Units Timing Information 9279-1 [facility] Respiratory Rate Value=18.0 Units=/m in 05/09/2019 8462-4 [facility] Blood Pressure-Diastolic Value=66 Un its=mmHg 05/09/2019 8480-6 [facility] Blood Pressure-Systolic Ffbtq=366 Un its=mmHg 05/09/2019 8867-4 [facility] Heart rate Value=71.0 Units=/min 04/2019 42451-9 [facility] O2 % BldC Oximetry Value=95.0 Units= % 05/09/2019 61093-1 [facility] Pain Level Value=0.0 05/09/2019 8310-5 [facility] Body Temperature Value=98.6 Units= F 05/09/2019 8302-2 LO[facility] Height Value=63.0 Units=Inches 05/01/2019 20422-1 INC Weight Fcpfe=930.0 Units=Lbs
--- OUTSIDE RECORDS SUMMARY | 2024-10-17 09:54 | XMS_ITS | Clinical Summary ---
Author Organization [facility] Address [address] [place] [address] Phone Care Team Providers Care Physical Education Department Chair Name Role Phone Jason Crain MD Unavailable [phone] [ ] Conditions or Problems No information available. Medications No information available. Medications Administered No information available. Allergies, Adverse Reactions, Alerts No information available. Results No information available. Plan of Care No information available. Procedures No information available. Vital Signs No information available. Immunizations No information available. Advance Directives No information available.
== END 2024-10-15 23:59 ==
LOC: LAB.DROPOF 10-17 09:52
PROVIDERS: PCP Internal Medicine; Visit Provider Internal Medicine
DX: E78.5 Hyperlipidemia, unspecified (principal); I10 Essential (primary) hypertension; E11.9 Type 2 diabetes mellitus without complications
CPT/HCPCS: 80053; 80061; 83036; 85025